=== PATIENT | male | born 1940 | race Caucasian/White ===

== ENCOUNTER 2024-03-26 08:49 | Outpatient (OUT) | payer MEDICARE, SELFPAY ==
--- NOTE | 2024-03-26 09:00 | CA_ITS ---
Patient Name: KEN BORDEN MR#: [id number] : 1940 Exam Date: 03/26/2024 Ordering Doctor: DR ARIANNE CORDOVA M.D. ECHOCARDIOGRAM REPORT PROCEDURE: CA ECHO DOPPLER COMPLETE INDICATIONS: Dyspnea on exertion, CABGx4, [place], lung cancer - chemotherapy, hypertension, diabetes COMPARISON: None. DESCRIPTION: COMPLETE ECHOCARDIOGRAM Real-time transthoracic echocardiography with 2D, M-mode, spectral and color flow Doppler performed. QUALITY: Technical quality was good. 72 , 219#, BSA 2.21 m2, BP 120/60 LEFT VENTRICLE: Normal chamber size. Proximal septal hypertrophy (sigmoid septum). Normal systolic function. LV EF: Normal left ventricular ejection fraction, (>55%). DIASTOLIC: Diastolic function is indeterminate. ATRIAL SEPTUM: Visually appears intact. LEFT ATRIUM: Moderate dilatation. RIGHT ATRIUM: Moderate dilatation. RIGHT VENTRICLE: Normal chamber size. Normal right ventricular systolic function. TRICUSPID VALVE: Normal mobility and thickness. No stenosis with trivial regurgitation. Unable to assess right-sided pressures due to lack of measurable tricuspid regurgitation. MITRAL VALVE: Normal mobility and thickness. No evidence of mitral valve stenosis. Mild mitral annular calcification. Trivial mitral regurgitation. AORTIC VALVE: Normal trileaflet appearance. Thickened aortic valve. Normal leaflet mobility. No evidence of aortic valve stenosis. No aortic regurgitation. AORTIC ROOT: Normal diameter and appearance. Ascending aorta is normal in size. PULMONIC VALVE: Not well visualized. No stenosis. No regurgitation. PERICARDIUM: No evidence of pericardial effusion. IVC: Collapses with inspirations. PLEURA: CONCLUSION: 1. Normal ventricular systolic function. LVEF is 55 to 60%. 2. Moderate biatrial dilatation. 3. No significant valvular dysfunction. 4. Unable to assess right-sided pressures due to lack of measurable tricuspid regurgitation. 5. No pericardial effusion. Adult Echocardiography Procedure Report Left Ventricle LVEDD (3.7 - 5.6 cm): 4.98 cm LVESD (2.2 - 4.0 cm): 3.64 cm LVIVS thickness (0.6 - 1.2 cm): 2.49 cm LVPW thickness (0.5 - 1.0 cm): 1.07 cm e': 0.08 m/s E - e': 6.54 LVOT Max Gradient: 2.51 mm[Hg] LVOT Area (cm2): 0.79 m/s Peak Velocity (LVOT): 0.79 m/s Mean Velocity (LVOT): 0.56 m/s LVOT Diameter 2.54 cm Left Atrium LA Volume Index (2D A2C): 27.73 ml/m2 Left Atrium Systolic Dimension: 4.02 cm Mitral Valve MV E to A Ratio: 0.57 Mitral Valve A-Wave Peak Velocity: 0.88 m/s Mitral Valve E-Wave Peak Velocity: 0.50 m/s Right Ventricle Aorta AO Root Diam: 3.65 cm Ascending Ao Diam: 2.92 cm Aortic Valve AoV Area (Peak Rafiq): 4.16 cm2, 4.16 cm2 AoV Area (VTI): 4.08 cm2, 4.08 cm2 Peak Velocity(Antegrade Flow): 0.96 m/s Peak Gradient(Antegrade Flow): 3.70 mm[Hg] Mean Velocity(Antegrade Flow): 0.64 m/s Mean Gradient(Antegrade Flow): 1.84 mm[Hg] Velocity Time Integral: 20.31 cm Tricuspid Valve Pulmonic Valve Peak Gradient: 3.90 mm[Hg], 3.10 mm[Hg] Right Atrium Right Atrium Systolic Pressure: 59.39 ml, 59.39 ml Dictated by: Ramy Marie M.D. on 03/26/2024 at 17:41 Approved by: Ramy Marie M.D. on 03/26/2024 at 17:45
== END 2024-03-26 08:50 | disposition home or self-care (01) ==
LOC: CARD 08:53
PROVIDERS: PCP Nurse Practitioner Family; Visit Provider Internal Medicine Interventional Cardiology
DX: R06.09 Other forms of dyspnea (principal); R60.9 Edema, unspecified
CPT/HCPCS: 93306

== ENCOUNTER 2025-09-22 09:44 | Outpatient (OUT) | payer MEDICARE, SELFPAY ==
--- OUTSIDE RECORDS SUMMARY | 2025-09-08 09:00 | XMS_ITS | Encounter Summary ---
Author Organization [facility] Address [address] [place] [address] Care Team Providers Care Poultry Grader Name Role Phone Richelle Patton SUPERVISOR [employer] Primary Care Provider + [phone] Reason for Referral * Imaging (Routine) - Pending ReviewSpecialtyDiagnoses / ProceduresReferred By ContactReferred To ContactCardiology Diagnoses Atherosclerosis of [place] coronary artery of [place] heart without angina pectoris Procedures Transthoracic echo (TTE) complete Ramona Espinal CNP [address] [place] [address] Phone: tel: fax: Referral IDStatusReasonStart DateExpiration DateVisits RequestedVisits [id number] Review Perform Procedure Reason for Visit * ReasonCommentsFollow-upPatient is here today for a 6 month follow up appointment with recent labs. Patient states he having chest pain, with and without activity, resolves its self. Patient complains of leg pain with walkin g resolves with rest.PVC'sCongestive Heart FailureCoronary Artery Disease HyperlipidemiaHypertensionNon-sustained ventricular tachycardiaPeripheral arterial occlusive diseaseLVHPost-op CABGChest PainWith and without activity Encounter Details DateTypeDepartmentCare Team (Latest Contact Info)Efkgmbpdyev37/30/2025 10:00 AM EDTOffice Visit [facility] [address] [place] [address] Ramona Espinal, IMAGING SYSTEM ADMINISTRATOR [address] [place] [address] Chronic diastolic heart failure (CMS/HCC) (Primary Dx); Atherosclerosis of [place] coronary artery of [place] heart without angina pectoris; Essential hypertension; Mixed hyperlipidemia; Other chest pain; PAD (peripheral artery disease) Social History Tobacco UseTypesPacks/DayYears UsedDateSmoking Tobacco: FormerCigarettes Smokeless Tobacco: NeverAlcohol UseStandard Drinks/WeekCommentsNot Currently0 (1 standard drink = 0.6 oz pure alcohol)UT Safety & EnvironmentAnswerDate Recorded Fear of Current or Ex-PartnerNot on file01/01/2024Emotionally AbusedNot on file 4Physically AbusedNot on file01/01/2024Sexually AbusedNot on file 4Physically or Sexually AbusedNot on file01/01/2024Sex and Gender InformationValueDate RecordedSex Assigned at HkqofYsbw27/27/2025 3:14 PM EDT Legal GexYhdf1805/08/2022 10:34 PM EDTGender ZpyruhauFara39/27/2025 3:14 PM EDT Sexual OrientationHeterosexual or Imtgylli98/27/2025 3:14 PM EDTdocumented as of this encounter Last Filed Vital Signs Vital SignReadingTime TakenCommentsBlood Laruqoxv409/6509/08/2025 9:53 AM EDT Kshcb257609/08/2025 9:53 AM EDTTemperature--Respiratory Rate--Oxygen Elkcqwrydf39% 09/08/2025 9:53 AM EDTInhaled Oxygen Concentration--Bwrggo85.8 kg (209 lb) 09/08/2025 9:53 AM WMWYxspzi890.9 cm (6')09/08/2025 9:53 AM EDTBody Mass Index 28.351 9:53 AM EDTdocumented in this encounter Functional Status * BPAnswerDate of AprvbnzbcyDfhqza268/ 9:53 AM LYNNTCNatali virk MA * PulseAnswerDate of PneqchwxsmTvkwvy6017/30/2025 9:53 AM Natali aSlvador MA * Patient PositionAnswerDate of WbfqborhugIqqptyAysifjm81/30/2025 9:53 AM EDT Natali Bravo MA * BPAnswerDate of IxfmkwyufrZiwmzo575/6509/08/2025 9:53 AM Natali Salvador MA * PulseAnswerDate of GpqomzmfbtQriaae3203/30/2025 9:53 AM Natali Salvador MA * BdS4HlutquZhga of LnstorbgzqNenvrv7036/30/2025 9:53 AM Natali Salvador MA * BP LocationAnswerDate of AssessmentAuthorLeft arm09/08/2025 9:53 AM EDT Natali Bravo MA * Patient PositionAnswerDate of KkzkkbzmyrHywucxPmgudxp98/30/2025 9:53 AM EDT Natali Bravo MA documented as of this encounter Progress Notes * Ramona Espinal, IMAGING SYSTEM ADMINISTRATOR - 09/08/2025 10:00 AM EDT Images from the original note were not included. Cardiovascular Medicine [facility] SUBJECTIVE Chief Complaint Patient presents with Follow-up Patient is here today for a 6 month follow up appointment with recent labs. Patient states he having chest pain, with and without activity, resolves its self. Patient complains of leg pain with walking resolves with rest. PVC's Congestive Heart Failure Coronary Artery Disease Hyperlipidemia Hypertension Non-sustained ventricular tachycardia Peripheral arterial occlusive disease LVH Post-op CABG Chest Pain With and without activity Leopoldo Aguilar . is a 85 y.o. male here for follow-up. PMHx: HFpEF, CAD (hx CABG X4 2008, C 09/14/2020), HTN, and HLD. Additional Hx: Lung CA s/p chemo HPI 09/08/2025 He has been having c/o chest pain for the past month or so. He notices pain with rest. More often he notices in the evening. Occurs left sided and radiates to his left shoulder. Pain is sharp. Lasts for maybe a minute then resolves on its own. No accompanied sx's. His breathing has been stable. He notes ongoing issues with leg pain with walking longer distances - this improves with rest. He has been following with Dr. Caldwell for his PAD. Denies orthopnea, PND, palpitations, syncope. Problem List[1] Medical History[2] Family History[3] Social History[4] Allergies[5] OBJECTIVE Visit Vitals BP 113/65 (BP Location: Left arm, Patient Position: Sitting) Pulse 70 Ht 1.829 m (6') Wt 94.8 kg (209 lb) SpO2 95% BMI 28.35 kg/m?? Smoking Status Former BSA 2.19 m?? Medications: Current Medications[6] Physical Exam Constitutional: Appearance: Normal appearance. He is normal weight. HENT: Head: Normocephalic and atraumatic. Right Ear: External ear normal. Left Ear: External ear normal. Eyes: Extraocular Movements: Extraocular movements intact. Pupils: Pupils are equal, round, and reactive to light. Neck: Vascular: No carotid bruit. Cardiovascular: Rate and Rhythm: Normal rate and regular rhythm. Pulses: Normal pulses. Heart sounds: Normal heart sounds. Pulmonary: Effort: Pulmonary effort is normal. Breath sounds: Normal breath sounds. Abdominal: General: Bowel sounds are normal. Palpations: Abdomen is soft. Musculoskeletal: General: Normal range of motion. Cervical back: Neck supple. Right lower leg: Edema present. Left lower leg: Edema present. Comments: +1 BLE edema with compression stockings in place Skin: General: Skin is warm and dry. Neurological: General: No focal deficit present. Mental Status: He is alert and oriented to person, place, and time. Psychiatric: Mood and Affect: Mood normal. Behavior: Behavior normal. Thought Content: Thought content normal. Judgment: Judgment normal. Labs: No results found for: EXTCMP , BMPR1A , CBCDIF , BNP , LASAP , RED No visits with results within 6 Month(s) from this visit. Latest known visit with results is: [facility] Encounter on 09/14/2020 Component Date Value Auto WBC 09/14/2020 7.87 RBC 09/14/2020 5.46 Hemoglobin 09/14/2020 14.5 Hematocrit 09/14/2020 45.4 MCV 09/14/2020 83.2 MCH 09/14/2020 26.6 (L) MCHC 09/14/2020 31.9 (L) RDW 09/14/2020 14.2 Platelets 09/14/2020 161 nRBC % 09/14/2020 0 09/08/2025 Cr 1.4, BUN 26, K 4.4, Na 143 Hgb 14 Mag 2.4 02/25/2025 Chol 115, trig 86, HDL 35, direct LDL 70, VLDL 17 Labs reviewed 01/18/2025: Glucose 106, BUN 27, creatinine 1.3, sodium 140, potassium 3.8, calcium 9.3, albumin 4.2, phosphorus 3.8, magnesium 2.3 Labs reviewed 09/14/2024: Potassium 3.9, sodium 145, calcium 9.1, creatinine 1.4, BUN 26, EGFR 50, glucose 211 09/07/2024: Hemoglobin A1c 6.5% Testing/Procedures: Coronary angiogram 09/14/2020: TTE 03/26/2024: Conclusion: 1. Normal ventricular ventricular systolic function. LVEF is 55 to 60% 2. Moderate by atrial dilation. 3. No significant valvular dysfunction. 4. Unable to assess right-sided pressures due to lack of measurable tricuspid regurgitation. 5. No pericardial fusion TTE 07/24/2022: Ventricular systolic function is normal. EF is 60%. grade 1 diastolic dysfunction. No significant valvular dysfunction. No pericardial effusion. ASSESSMENT/PLAN: Diagnoses and all orders for this visit: Chronic diastolic heart failure (CMS/HCC) Atherosclerosis of [place] coronary artery of [place] heart without angina pectoris - Transthoracic echo (TTE) complete; Future - Lexiscan Stress Myocardial Perfusion Imaging; Future Essential hypertension Mixed hyperlipidemia Other chest pain - Lexiscan Stress Myocardial Perfusion Imaging; Future PAD (peripheral artery disease) #CORONARY ARTERY DISEASE -Hx CABG X4 2008 -[facility] 09/14/2020 (indication exertional shortness of breath, abnormal stress test): Severe three-vessel [place] CAD, 4/4 bypass grafts patent LVEF: 55-60% (from last TTE on 03/26/2024) Patient has developed some anginal symptoms within the past month. Will proceed with a lexiscan stress test to assess for ischemia. He notes he doesn't think he could walk on the treadmill due to back and leg pain therefore lexiscan stress test was ordered. EKG today shows SR, PVCs, bifascicular block Denies usage of nitroglycerin tablets Continue statin, plavix, metoprolol #HEART FAILURE, diastolic, chronic LE edema +1, currently wearing compression stockings Continue lasix, jardiance #HYPERLIPIDEMIA Latest lipid panel reviewed 02/25/2025: Chol 115, trig 86, HDL 35, direct LDL 70, VLDL 17 Well controlled Continue atorvastatin 20mg daily #HTN Controlled Continue amlodipine, metoprolol, lisinopril #PAD -On pletal, plavix, statin -Continue follow up with vascular If testing unremarkable, Follow up in about 6 months (around 03/09/2026). Ramona Espinal CNP [facility] [1] Patient Active Problem List Diagnosis PVC (premature ventricular contraction) Nonsustained ventricular tachycardia ([facility]/HCC) Dyspnea Chronic diastolic heart failure (CMS/HCC) Coronary atherosclerosis Migraine Psoriasis JULIEN (obstructive sleep apnea) Diabetes mellitus type II, non insulin dependent ([facility]/HCC) Mixed hyperlipidemia Essential hypertension Abnormal CT scan, lung Acid reflux Anemia Asymptomatic microscopic hematuria Benign hypertensive renal disease Benign prostatic hyperplasia BPH with urinary obstruction 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 Cerumen impaction Chronic obstructive lung disease (CMS/HCC) Claudication COPD type B ([facility]/HCC) Community acquired bacterial pneumonia Edema of leg Elevated prostate specific antigen (PSA) Feeling of incomplete bladder emptying Hypertensive heart disease Leaking of urine Lung nodules Mild carpal tunnel syndrome of right wrist Nocturia Non-smoker MCFP (current) use of insulin ([facility]/HCC) Obesity, unspecified Peripheral arterial occlusive disease Patient had no falls in past year Other specified problems related to psychosocial circumstances Phimosis 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 (CMS/HCC) Pure hypercholesterolemia Solitary pulmonary nodule Stage 3 chronic kidney disease (CMS/HCC) Type 2 diabetes mellitus with diabetic peripheral angiopathy without gangrene ([facility]/HCC) Typical angina Vitamin D deficiency Venous stasis ulcer of lower extremity (CMS/HCC) Urethral meatal stenosis Uncontrolled type 2 diabetes mellitus Atherosclerosis of [place] arteries of extremities with intermittent claudication, bilateral legs History of intravascular stent placement Impacted cerumen of both ears Type 2 diabetes mellitus with diabetic neuropathy, with long-term current use of insulin ([facility]) Encounter for other preprocedural examination Left ventricular hypertrophy Primary malignant neoplasm of right lower lobe of lung (CMS/HCC) Type 2 diabetes mellitus with mild nonproliferative diabetic retinopathy without macular edema, right eye (CMS/[facility]) Cataract Exercise intolerance Fatigue [2] Past Medical History: Diagnosis Date Cancer ([facility]) CHF (congestive heart failure) ([facility]/HCC) Coronary artery disease Diabetes mellitus ([facility]) Hyperlipidemia PVD (peripheral vascular disease) [3] Family History Problem Relation Name Age of Onset No Known Problems Mother Heart attack Father Diabetes Sister [4] Social History Tobacco Use Smoking status: Former Types: Cigarettes Smokeless tobacco: Never Substance Use Topics Alcohol use: Not Currently Drug use: Never [5] Allergies Allergen Reactions Aspirin Hives Penicillins Other [6] Current Outpatient Medications: albuterol 2.5 mg /3 mL (0.083 %) nebulizer solution, INHALE contents of 1 vial using nebulizer FOURTIMES DAILY & EVERY 2 HOURS NEEDED, Disp: , Rfl: amLODIPine (Norvasc) 5 mg tablet, Take 1 tablet (5 mg) by mouth in the morning., Disp: 30 tablet, Rfl: 5 ascorbic acid (Vitamin C) 500 mg tablet, Take 500 mg by mouth in the morning., Disp: , Rfl: atorvastatin (Lipitor) 20 mg tablet, Take 1 tablet by mouth at bedtime., Disp: , Rfl: sfewcohkxi-ndnhtljx-pxpxzpodch 160-9-4.8 mcg/actuation HFA aerosol inhaler, Inhale 160 mcg Twice daily at 6am and 6pm., Disp: , Rfl: cholecalciferol (Vitamin D-3) 25 MCG (1000 UT) capsule, Take 2 capsules every day by oral route., Disp: , Rfl: cilostazol (Pletal) 100 mg tablet, Take 1 tablet by mouth in the morning and at bedtime., Disp: , Rfl: clopidogrel (Plavix) 75 mg tablet, Take 1 tablet by mouth in the morning., Disp: , Rfl: dulaglutide (Trulicity) 1.5 mg/0.5 mL pen injector, Inject 1.5 mg under the skin 1 (one) time per week., Disp: , Rfl: empagliflozin (Jardiance) 10 mg, Take 1 tablet by mouth in the morning., Disp: , Rfl: finasteride (Proscar) 5 mg tablet, Take 1 tablet by mouth in the morning., Disp: , Rfl: fluticasone furoate-vilanteroL (Breo Elipta) 200-25 mcg/dose inhaler, INHALE 1 (ONE) PUFF DAILY, Disp: , Rfl: furosemide (Lasix) 20 mg tablet, Take 1 tablet (20 mg) by mouth in the morning and at bedtime., Disp: 180 tablet, Rfl: 3 glucose 4 gram chewable tablet, Chew 16 g., Disp: , Rfl: insulin glargine (Lantus) 100 unit/mL (3 mL) pen, inject 40 units SUBCUTANEOUSLY daily, Disp: , Rfl: lisinopril 20 mg tablet, Take 1 tablet by mouth in the morning., Disp: , Rfl: magnesium citrate and oxide (magnesium citrate,mag oxide) 250 mg capsule, Take 250 mg by mouth 2 times daily., Disp: , Rfl: metFORMIN XR (Glucophage-XR) 500 mg 24 hr tablet, Take 500 mg by mouth daily with evening meal., Disp: , Rfl: metoprolol tartrate (Lopressor) 25 mg tablet, TAKE 1 & 1/2 (ONE AND ONE-HALF) TABLETS BY MOUTH TWICE DAILY, Disp: , Rfl: nitroglycerin (Nitrostat) 0.4 mg SL tablet, DISSOLVE 1 TABLET UNDER THE TONGUE NEEDED FOR CHEST PAIN- MAY REPEAT EVERY 5 MINUTES IF NEEDED ( MAX 3 DOSES.- IF NO RELIEF CALL 911), Disp: , Rfl: omega-3 fatty acids-fish oil (Fish Oil) 300-1,000 mg capsule, Take 1 capsule by mouth twice a day.,Disp: , Rfl: semaglutide 1 mg/dose (4 mg/3 mL) pen injector, Inject 1 mg under the skin in the morning., Disp: ,Rfl: insulin lispro (HumaLOG) 100 unit/mL injection, inject 13 units subcutaneously THREE TIMES DAILY BEFORE MEALS (Patient not taking: Reported on 09/08/2025), Disp: , Rfl: documented in this encounter Plan of Treatment NameTypePriorityAssociated DiagnosesOrder ScheduleTransthoracic echo (TTE) completeEchocardiographyRoutine Atherosclerosis of [place] coronary artery of [place] heart without angina pectoris Expected: 09/08/2025 (Approximate), Expires: 09/08/2027Lexiscan Stress Myocardial Perfusion ImagingCardiac ServicesRoutine Atherosclerosis of [place] coronary artery of [place] heart without angina pectoris Other chest pain Expected: 09/08/2025 (Approximate), Expires: 09/08/2027documented as of this encounter Visit Diagnoses Diagnosis Chronic diastolic heart failure (CMS/HCC)- Primary Chronic diastolic heart failure Atherosclerosis of [place] coronary artery of [place] heart without angina pectoris Essential hypertension Unspecified essential hypertension Mixed hyperlipidemia Other chest pain PAD (peripheral artery disease) Unspecified peripheral vascular disease documented in this encounter Care Teams Team MemberRelationshipSpecialtyStart DateEnd Date Richelle Patton FNP [address] [place], [place] [address] [address] PCP - GeneralNurse Xdqaoveloyfn27/16/23documented as of this encounter
--- NOTE | 2025-09-22 09:45 | NM_ITS ---
Patient Name: KEN BORDEN MR#: [id number] : 1940 Exam Date: 09/22/2025 Ordering Doctor: ALBERTINA AVILES CNP RADIOLOGY REPORT PROCEDURE: NM MARIBELL PERF SPECT REST STR COMPARISON: None. INDICATIONS: CHEST PAIN, CORONARY ARTERY DISEASE TECHNIQUE: Exam Description: Stress/Rest one day protocol gated SPECT Rest Imagin.8 mCi Tc-99m Cardiolite IV on 09/22/2025 Stress Imaging 30.2 mCi Tc-99m Cardiolite IV on 09/22/2025 Exercise Protocol: 0.4 mg Lexiscan given IV Heart Rate (bpm): Rest: 75 Max: 103 PMHR: 75 Blood Pressure: Rest: 114/46 Max: 136/60 Symptoms: Rest and peak stress ECG findings were pending and the EKG portion of the study was pending per attending physician [facility] [[email or web address]] . For more details please see separate cardiac stress test report. FINDINGS: QUALITY OF STUDY: Good PERFUSION DEFECT: LOCATION: Mid and basal inferolateral as well as basal inferior segments SIZE: Medium SEVERITY: Severe TYPE: Fixed WALL MOTION: The upper segments appear hypokinetic LV SIZE: 120 mL. TID / TCD: 1.0 LVEF: Calculated EF 49%. SUMMARY: Abnormal myocardial perfusion imaging study CONCLUSION: Abnormal myocardial perfusion stress images revealing evidence of scar/infarct involving mid and basal inferolateral segments and basal inferior segment. No evidence of ischemia Slightly reduced left ventricle systolic function, ejection fraction 49% No transient ischemic dilatation, TID 1.0 EKG portion of stress test is reported separately Dictated by: Marcelo Gonzalez MD on 09/26/2025 at 17:19 Approved by: Marcelo Gonzalez MD on 09/26/2025 at 17:24
--- OUTSIDE RECORDS SUMMARY | 2025-09-22 09:48 | XMS_ITS | Clinical Summary ---
Author Organization [facility] Address [address] [place] [address] Care Team Providers Care Band Shover Name Role Phone Liz Tellez CNP Primary Care Provider aJvi CROW DO, W. Don Unavailable [phone] Allergies Active AllergyReactionsCriticalityNoted PsqaOwfkakdzZqxmzbv70/28/2020Penicillins 09/06/2020 Medications MedicationSigDispense QuantityRefillsLast FilledStart DateEnd DateStatus amLODIPine (NORVASC) 2.5 MG tablet Take 1 (one) tablet (2.5 mg total) by mouth daily .Active atorvastatin (LIPITOR) 20 MG tablet Take 1 (one) tablet (20 mg total) by mouth daily .Active clopidogreL (PLAVIX) 75 mg tablet Take 1 (one) tablet (75 mg total) by mouth daily .Active finasteride (PROSCAR) 5 mg tablet Take 1 (one) tablet (5 mg total) by mouth daily .Active furosemide (LASIX) 20 MG tablet Take 1 (one) tablet (20 mg total) by mouth daily .Active insulin glargine (Lantus Solostar U-100 Insulin) 100 unit/mL (3 mL) InPn Inject 10 (ten) Units under the skin nightly .Active lisinopriL (PRINIVIL,ZESTRIL) 20 MG tablet Take 1 (one) tablet (20 mg total) by mouth daily .Active magnesium 250 mg Tab Take 1 (one) tablet (250 mg total) by mouth 2 (two) times a day .Active metoprolol tartrate 37.5 mg Tab Take 1 (one) tablet (37.5 mg total) by mouth 2 (two) times a day .Active nitroGLYCERIN (NITROSTAT) 0.[address] 1 (one) tablet (0.4 mg total) under the tongue every 5 (five) minutes as needed for chest pain , if no relief after 3 doses call 911 .Active ascorbic acid, vitamin C, (VITAMIN C) 500 MG tablet Take 1 (one) tablet (500 mg total) by mouth daily .Active cholecalciferol, vitamin D3, 25 mcg (1,000 unit) capsule Take 1 (one) capsule (1,000 Units total) by mouth daily .Active albuterol (PROVENTIL) 2.5 mg /3 mL (0.083 %) nebulizer solution Take 3 mL (2.5 mg total) by nebulization once daily .Active cilostazoL (PLETAL) 100 MG tablet Indications:Atherosclerosis of [place] arteries of extremities with intermittent claudication, bilateral legs ([facility]),PAD (peripheral artery disease) ([facility])Take 1 (one) tablet (100 mg total) by mouth 2 (two) times a day Take on an empty stomach . 60 tablet 4Active zvwpuqvdsv-zoerveij-mtqwklsoal (Breztri Aerosphere) 160-9-4.8 mcg/actuation HFAA Inhale 2 (two) puffs 2 (two) times a day .Active empagliflozin (Jardiance) 25 mg Tab Take 0.5 (one-half) tablet (12.5 mg total) by mouth daily Per [facility], 1/2 tab daily .Active semaglutide (Ozempic) 1 mg/dose (4 mg/3 mL) Pen Indications:Type 2 diabetes mellitus with diabetic nephropathy, with long-term current use of insulin ([facility])Inject 0.75 mL (1 mg total) under the skin every 7 days . 9 mL 4Active metFORMIN (GLUCOPHAGE-XR) 500 MG 24 hr tablet One tablet twice daily with food . 60 tablet 5Active omega-3 fatty acids/fish oil (fish oil-omega-3 fatty acids) 300-1,000 mg capsule Take 1 (one) capsule by mouth 2 (two) times a day .Active tiotropium (SPIRIVA) [address] 1 (one) capsule (18 mcg total) into inhaler and inhale daily .Active blood sugar diagnostic (glucose blood) strips Indications:Type 2 diabetes mellitus with chronic kidney disease, with long-term current use of insulin, unspecified CKD stage (HCC)Check BG pre meals and bedtime, E11.65 . 400 strip 5Active lancets Misc Indications:Type 2 diabetes mellitus with chronic kidney disease, with long-term current use of insulin, unspecified CKD stage (HCC)Check BG pre meals and bedtime . 400 each 5Active blood-glucose meter kit Indications:Type 2 diabetes mellitus with chronic kidney disease, with long-term current use of insulin, unspecified CKD stage (HCC)Use as instructed, e11.65, acck guide me . 1 each 6Active Active Problems ProblemNoted DateDiagnosed DateHistory of intravascular stent placement 04/08/2024Type 2 diabetes mellitus with diabetic neuropathy, with long-term current use of oloiofb7604/08/2024AD (peripheral artery disease)04/08/2024 Atherosclerosis of [place] arteries of extremities with intermittent claudication, bilateral legs04/08/2024Lung mgtefrz0412/20/2022 Overview (12/20/2022): Added automatically from request for surgery [id number] Family History Medical HistoryRelationCommentsRheumatic feverFatherRelationStatusCommentsFather Social History Tobacco UseTypesPacks/DayYears UsedDateSmoking Tobacco: AuhvmaNrmotrvexu425 08/31/1959 - 08/31/2009Passive Smoke Exposure: NeverSmokeless Tobacco: Never Tobacco Cessation:Counseling Given: Not Answered Comments:Quit 2008 Alcohol UseStandard Drinks/WeekCommentsNot Currently0 (1 standard drink = 0.6 oz pure alcohol)not any more but use to be badSex and Gender InformationValueDate RecordedSex Assigned at BirthNot on fileLegal IctYsqk04/20/2020 1:46 PM EDT Gender DeegbyvtMjhf99/21/2022 8:33 AM EDTSexual UdyxnucortmFdipbwtm68/21/2022 8:33 AM EDT Last Filed Vital Signs Vital SignReadingTime TakenCommentsBlood Cgpngpjj336/5405 1:03 PM EDT Rzmck2277 1:03 PM ISBXaxnpesxiix02.8 ??C (98.2 ??F)07/23/2023 10:28 AM EDTRespiratory Njtp111004/21/2023 11:27 AM EDTOxygen Udscnglxuk60%07/23/2023 10:34 AM EDTat rest on room airInhaled Oxygen Concentration--Nxqoos52.2 kg (212 lb) 03/21/2025 1:03 PM RSWEotmcn269.9 cm (6')09/30/2024 1:43 PM ESTBody Mass Index 28.7509/30/2024 1:43 PM EST Plan of Treatment Health MaintenanceDue DateLast DoneCommentsMedicare Wellness Visit1944 Diabetic Eye Exam1951epression Screening/Follow-Up (PHQ-2/9)1953 Zoster Vaccines (1 of 2)1991Falls Risk Khrsqzrjgm38/25/2006RSV Vaccines (1 - 1-dose 75+ series)2016Urine (micro)albumin/creatinine ratio - Diabetes /05/2023, 06/26/2022eGFR ??? Bduoeyio11/03/2024, 09/16/2023, 01/13/2023, Additional history existsCOVID-19 Vaccine ( - 2024- season)2025Influenza Vaccine (#1)/, 09/10/2016Diabetic Foot Exam/8559X6K42/10/2025, 09/07/2024, 01/30/2024, Additional history existsTetanus/Diphtheria/Pertussis (2 - Td or Tdap)03/02/2027 03/02/2017Pneumococcal Vaccine: 50+ OfekcJvwpenugi08/03/2016, 10/19/2009HIB VaccinesAged OutNo longer eligible based on patient's age to complete this topic HPV VaccinesAged OutNo longer eligible based on patient's age to complete this topicHepatitis A VaccinesAged OutNo longer eligible based on patient's age to complete this topicHepatitis B VaccinesAged OutNo longer eligible based on patient's age to complete this topicIPV VaccinesAged OutNo longer eligible based on patient's age to complete this topicMeningococcal ACWY VaccineAged OutNo longer eligible based on patient's age to complete this topicMeningococcal B VaccineAged OutNo longer eligible based on patient's age to complete this topic Rotavirus VaccinesAged OutNo longer eligible based on patient's age to complete this topic Procedures Procedure NamePriorityDate/TimeAssociated DiagnosisCommentsPOC HEMOGLOBIN A1C Fxawsnu2703/21/2025 1:32 PM EDT Type 2 diabetes mellitus with chronic kidney disease, with long-term current use of insulin, unspecified CKD stage (HCC) BASIC METABOLIC IAMHBKxidhpq04/05/2024 9:59 AM EST Atherosclerosis of [place] arteries of extremities with intermittent claudication, bilateral legs (HCC) Type 2 diabetes mellitus with diabetic neuropathy, with long-term current use of insulin (HCC) MICROALBUMIN, URINE, OPZJJBAjodvqp86/07/2023 11:36 AM EST Type 2 diabetes mellitus with chronic kidney disease, with long-term current use of insulin, unspecified CKD stage (HCC) from Last 3 Months or Most Recently Relevant to Health Maintenance Results * (ABNORMAL) POC Hemoglobin A1C (03/21/2025 1:32 PM EDT)ComponentValueRef Range Test MethodAnalysis TimePerformed AtPathologist SignatureHemoglobin A1C6.2(A) 4.0 - 6.0 %Specimen (Source)Anatomical Location / LateralityCollection Method / VolumeCollection TimeReceived LckpDfeju40/12/2025 1:32 PM EDT Narrative Authorizing ProviderResult TypeResult StatusSaraterrance Luna [facility] TEST ORDERABLESFinal Result * (ABNORMAL) Basic metabolic panel (09/14/2024 9:59 AM EST)ComponentValueRef RangeTest MethodAnalysis TimePerformed AtPathologist CafxlpsimLfddhey899(H)65 - 139 mg/dLQUEST TRINITY HEALTHComment: ? Non-fasting reference interval For someone without known diabetes, a glucose value >125 mg/dL indicates that they may have diabetes and this should be confirmed with a follow-up test. BUN26(H)7 - 25 mg/dLQUEST DIAGNOSTICS KIN[facility]ED HEALTHCARECreatinine1.40 (H)0.70 - 1.22 mg/dLQUEST DIAGNOSTICS OF LATROBE HOSPITALeGFR50(L)> OR = 60 mL/min/1.71z1PJCBP DIAGNOSTICS OF LATRO[facility] HOSPITALBun/Creatinine Ratio ([facility])196 - 22 (calc)[facility] HOSPITALSodium145135 - 146 mmol/LQUEST DIAGNOSTICS OF [facility] HOSPITALPotassium3.93.5 - 5.3 mmol/LQUEST DIAGNOSTICS OF LATROBE HOSPITALChloride10598 - 110 mmol/L [facility]ALTHCARECO23120 - 32 mmol/LQUEST DIAGNOSTICS OF [facility]RO[facility] HOSPITALCalcium9.18.6 - 10.3 mg/dLQUEST DIAGNOSTICS OF LATROBE HOSPITALSpecimen (Source)Anatomical Location / Laterality Collection Method / VolumeCollection TimeReceived TimeBloodBLOOD SPECIMEN / Vgzfivs2109/14/2024 9:59 AM EST09/14/2024 10:00 AM EST Narrative [facility] - 09/14/2024 10:25 PM EST FASTING:NO FASTING: NO Authorizing ProviderResult TypeResult StatusW. Nixon Caldwell III, DOLAB BLOOD ORDERABLESFinal ResultPerforming OrganizationAddressCity/State/ZIP CodePhone Number [facility] [address] [place] [address], * (ABNORMAL) Microalbumin/Creatinine Ratio, UR Random (09/16/2023 11:36 AM EST) ComponentValueRef RangeTest MethodAnalysis TimePerformed AtPathologist SignatureMicroalb, Ur5.9(H)0.0 - 1.8 mg/dL09/16/2023 2:00 PM [facility] Microalbumin/Creat Ratio66(H)0 - 25 mg/g crea111/16/2022 2:00 PM [facility] Creatinine, Ur, Hvwlfs77.1mg/dL09/16/2023 2:00 PM [facility] LABSpecimen (Source) Anatomical Location / LateralityCollection Method / VolumeCollection Time Received TimeUrineURINE SPECIMEN / UnknownCollection / Iwpogte2209/16/2023 11:36 AM EST09/16/2023 11:36 AM EST Narrative Authorizing ProviderResult TypeResult StatusHussein Holden ZUÑIGA ORDERABLESFinal ResultPerforming OrganizationAddressCity/State/ZIP CodePhone Number LAB [address] [place] [address] from Last 3 Months or Most Recently Relevant to Health Maintenance Insurance Care Teams Team MemberRelationshipSpecialtyStart DateEnd Liz Tellez CNP [address] [place] [address] PCP - GeneralFamily Vffpvlal09/7/22 Rey Caldwell III, DO [address] [place] [address] Consulting PhysicianVascular Surgery04/08/24
--- OUTSIDE RECORDS SUMMARY | 2025-09-22 09:48 | XMS_ITS | Clinical Summary ---
Author Organization [id number] [address] [place] [address] Care Team Providers Care Battalion Fire Chief Name Role Phone Helen Jimenez APRN-GAMBLING MONITOR Primary Care Provider Unavailable Allergies Active AllergyReactionsCriticalityNoted RlkbRoxwjixhYyhntrzZxxvu81/12/2022 Opyfgruvtzs08/12/2022 Medications MedicationSigDispense QuantityRefillsLast FilledStart DateEnd DateStatus albuterol (PROVENTIL,VENTOLIN) 2.5 mg /3 mL (0.083 %) nebulizer solution Inhale 2.5 mg by nebulization every 6 (six) hours as needed for wheezing.Active amLODIPine (NORVASC) 2.5 mg tablet Take 2.5 mg by mouth in the morning. At bedtime .Active atorvastatin (LIPITOR) 20 mg tablet Take 20 mg by mouth in the morning. At bedtime .Active fluticasone furoate-vilanteroL (BREO ELLIPTA) 200-25 mcg/dose blister with device Inhale 1 puff daily.Active clopidogreL (PLAVIX) 75 mg tablet Take 75 mg by mouth daily.Active finasteride (PROSCAR) 5 mg tablet Take 5 mg by mouth daily.Active furosemide (LASIX) 20 mg tablet Take 20 mg by mouth 2 (two) times a day.Active glipiZIDE (GLUCOTROL) 10 mg tablet Take 10 mg by mouth 2 (two) times a day before meals.Active insulin lispro protamin-lispro (HumaLOG Mix 50-50 KwikPen) 100 unit/mL (50-50) insulin pen Inject under the skin 2 (two) times a day before meals. Inject 13 units subcutaneously 3 times a day before mealsActive insulin glargine (LANTUS, BASAGLAR) 100 unit/mL (3 mL) insulin pen Inject under the skin nightly. 40 units dailyActive lisinopriL (PRINIVIL,ZESTRIL) 20 mg tablet Take 20 mg by mouth daily.Active magnesium 250 mg tablet Take 250 mg by mouth 2 (two) times a day.Active metoprolol tartrate (LOPRESSOR) 25 mg tablet Take 25 mg by mouth in the morning and 25 mg before bedtime. 1 & 1/2 - 2 times a day .Active nitroglycerin (NITRODUR) 0.4 mg/hr Place 1 patch on the skin daily. Dissolve 1 tablet under the tongue as needed for painActive sAXagliptin (ONGLYZA) 5 mg tablet Take 5 mg by mouth daily.Active tiotropium (SPIRIVA) 18 mcg per inhalation capsule Place 1 capsule into inhaler and inhale once daily.Active cholecalciferol (VITAMIN D3) 1,000 units tablet Take 1,000 Units by mouth daily.Active Active Problems ProblemNoted DateDiagnosed DateChronic diastolic heart dlqwtav5810/17/2021Type 2 diabetes mellitus with diabetic peripheral angiopathy without zevhcfsv27/14/2012 Qyxvjspfspsc47/14/9718Omhjzgrp53/09/2064Nilkzogzm32/09/2012Sleep apnea05/18/2012 Coronary poozhcrwvfibbqcu09/01/2009 Resolved Problems ProblemNoted DateDiagnosed DateResolved DateSevere obesity (BMI 35.0-39.9) with kvcztvfbrcc78AD (peripheral artery disease)10/23/2012 07/21/2022 Overview (11/21/2021): RECREATION ATTENDANT/Stent,EVETTE RSFA 2010 Social History Tobacco UseTypesPacks/DayYears UsedDateSmoking Tobacco: FormerCigarettesQuit: 07/30/2018Smokeless Tobacco: NeverAlcohol UseStandard Drinks/WeekCommentsNot Currently0 (1 standard drink = 0.6 oz pure alcohol)ChildcareAnswerDate Recorded MbfokgdrwEluwpgk03/12/2019EmploymentAnswerDate RecordedEmploymentUnknown 04/21/2019Sex and Gender InformationValueDate RecordedSex Assigned at BirthNot on fileLegal SflYfyy1206/14/2015 4:58 PM EDTGender IdentityNot on fileSexual OrientationNot on file Last Filed Vital Signs Vital SignReadingTime TakenCommentsBlood Geaqzxyi933/4908/23/2022 2:14 PM EDT Xzaji923403/21/2022 9:04 AM PJJKdsqgstyxzx01.3 ??C (97.3 ??F)12/06/2021 9:40 AM ESTRespiratory Nvhj361803/21/2022 9:04 AM EDTOxygen Wdkqbswnsq82%12/20/2021 11:34 AM ESTInhaled Oxygen Concentration--Kpspcr802.2 kg (254 lb)08/23/2022 2:14 PM XDXOilhfy031.3 cm (5' 10.98 )08/23/2022 2:14 PM EDTBody Mass Index35.44 08/23/2022 2:14 PM EDT Plan of Treatment Health MaintenanceDue DateLast DoneCommentsDepression Onbxucmgl99/25/1953Tobacco Rakfqdssc65/25/1953Zoster (Shingles) Vaccine (1 of 2)1991Fall Risk Taiwutzff52/25/2006RSV ( or age 60+ yrs) (1 - 1-dose 75+ series) 2016Influenza Lgyglss1807/11/2025DTaP,Tdap and Td Vaccines (2 - Td or Tdap) Medical Devices Not on file Insurance Care Teams Team MemberRelationshipSpecialtyStart DateEnd Date Helen Jimenez APRN-GAMBLING MONITOR PCP - GeneralNurse Cptoleqnmdci25/20/21
--- OUTSIDE RECORDS SUMMARY | 2025-09-22 09:48 | XMS_ITS | Continuity of Care Document ---
Author Organization [facility] Address [address] [place] [phone] Phone [phone] Care Team Providers Care Community Service Worker Name Role Phone Liz Tellez CNP Care Team Information Rece iver [phone] Problems Active Problems Provider Date Type 2 diabetes mellitus David Malin M.D. Ons et: 02/19/2012 Benign hypertensive renal disease David Malin M.D. Onset: 02/19/2012 Chronic kidney disease stage 3 Idalmis Dasilva Onset: 02/19/2012 Pure hypercholesterolemia David Malin M.D. On set: 02/19/2012 Obesity David Malin M.D. Onset: 02/18 Type 2 diabetes mellitus David Malin M.D. Ons et: 09/29/2014 Uncontrolled type 2 diabetes mellitus Clay isaac MD Onset: 10/19/2015 Family History Date Family Member(s) Observation Comments Father Heart Disease AGE 6 9 Father Diabetes Mother Congestive Heart Failure DEC EASED AGE 72 Mother Diabetes First Sister Diabetes STILL LIVING AG E 72 Social History Type Date Description Comments Sex Male ETOH Use Has consumed alc ohol in the past Tobacco Use Start: Unknown End: Unknown Patient is a former smoker Quit smoking manish 2008 Recreational Drug Use Denies Drug Use Smoking Status Reviewed: 02/07/25 Patient is a former smoker Quit smoking destinyud 2008 Results Test Acquired Date Facility Test Result H/L [place] .Magnesium 08/16/2025 [facility] [phone].Magnesium2.4.Hemoglobin And Qswphajjcb59/07/2025[facility] [phone].Hemoglobin Blood14.0.Scneksnkdy84.0.Vitamin D, 25 Hydroxy 08/16/2025[facility] [phone].Vitamin D, 25 Xzcywpy538.5.Renal Panel-lab jos/quest08/16/2025 [facility] [phone].Calcium9.4.Carbon Dqtvvri10.Xleuyirw453.Phosphorus4.0 .Potassium4.4.Asrckw237.BUN26.GFR Kjnwpnykk95.Creatinine-LC1.4Urine Protein+Creatinine W/Rat08/16/2025[facility] [phone] Protein Random W/O Creat21.6Urine Creatine QN Dslokh68.7 .Hemoglobin And Jpyvwmvbyu66/12/2025[facility] [address] [place] [address] [phone].Hemoglobin Blood14.0.Mrxpdlkngh03.3.Ecxuovcyg86/12/2025[facility] [address] [place] [address] [phone].Magnesium2.3.Renal Panel-lab jos/quest01/19/2025[facility] [address] [place] [address] [phone].Albumin4.2.Calcium9.3.Carbon Ykoozja79.Aqbkarop076.Phosphorus3.8 .Potassium3.8.Vszqqd223.BUN27.GFR Gzioavblk78Qggo88.Creatinine-LC1.3Urine Protein+Creatinine W/Rat01/19/2025[facility] [address] [place] [address] [phone] Protein Random W/O Creat16.9Urine Creatine QN Leousp89.7 .Ipth01/19/2025[facility] [address] [place] [address] [phone].Ipth22.Vitamin D, 25 Stpfshu0301/19/2025[facility] [address] [place] [address] [phone].Vitamin D, 25 Tqgbcex087.9.Renal Panel08/03/2024[facility] [address] [place] [address] [phone].Albumin4.1.Calcium9.1.Carbon Jmldyse21.Tiicxymh180.Phosphorus2.8 .Potassium3.8.Ssmbbg623.BUN32.GFR Mxhwhmngj67Medg41.Creatinine-LC1.4.Hemoglobin And Qolupkdehj70/24/[address] [address] [phone].Hemoglobin Blood13.4.Ttinewvksh98.5PTH Intact W/Bzrnrqp1208/03/[address] [address] [phone]#Misc Floq37Ldcmhto D 25 Iduytuy6008/03/2024[address] [address] [phone]#Misc Test>120.0.Urine Protein/Creat. Rpcnys6108/03/2024[address] [address] [phone].Urine Protein Koubee28.6.Urine Creatinine Gkzrct916.3.Urine Prot/Creat Ratio23.30.BMP W/Egfr-LC01/30/2024[facility] [phone].Jctpqy549.Potassium4.1.Ndxbqobr59.Carbon Taucgxi51.GFR55 .Creatinine-LC1.3.BUN23.Renal Panel01/21/2023[facility] [phone].Albumin3.8.Calcium9.3.Carbon Dibdpif12.Zwxzbqku357.Phosphorus3.7 .Potassium4.0.Jrajel087.BUN24.GFR Bjxtxyyxu56.Creatinine-LC1.41.Ua01/21/2023 [facility] [phone] AppearanceCLEARUa BilirubinNEGUa BloodNEGUa ColorYELLOWUa Epithelial Cells QL0-2Ua GlucoseNEGUa KetonesNEGUa Leuko1+Ua NitriteNEGUa PH Test Strip5.0Ua Protein1+Ua RBC2-5Ua SourceCLEAN CATCHUa Specific Gravity1.020Ua UrobilinogenNORMALUa WBC2-5.Urine Protein/Creat. Scnbss403[facility] [phone].Urine Protein Sfwbnn76.Urine Creatinine Roegpz661.8.Urine Prot/Creat Ratio0.193.Renal Panel (Other Labs)07/22/2022[place] [id number] [phone].Albumin4.1.Calcium9.7.Carbon Yomefol00.Jalyzqjp157.Creatinine-LC 1.18.Phosphorus3.3.Rqugxi521.BUN17.DKF25Ppos96.Potassium4.0.Urine Protein/Creat. Cntjnt8807/22/[address] [address] [phone].Urine Protein Xjqtno83.Urine Prot/Creat Ratio0.42.Ua07/22/[address] [address] [phone] AppearanceclearUa Bilirubin-Ua BloodtraceUa ColoryellowUa Epithelial Cells QL5-10Ua Glucose-Ua Ketones-Ua Leuko-Ua Nitrite-Ua PH Test Strip6.0Ua Protein2+Ua RBC0-2Ua Specific Gravity1.025Ua UrobilinogennormalUa WBC none seen.Renal Panel (Other Labs)07/10/202[address] [address] [phone].Albumin3.9.Calcium8.9.Carbon Frorcau01.Fmboqxzt533.Creatinine-LC 1.4.Phosphorus3.4.Hizdwk518.BUN25.DXO50Rguc00.Potassium4.7.Urine Protein/Creat. Etjafn5707/10/[address] [address] [phone].Urine Protein Gexulh62.0.Urine Creatinine Bydgwk538.5.Urine Prot/Creat Wiqcy861.30.Ua07/10/[address] [address] [phone] AppearanceclearUa BilirubinnegUa BloodnegUa ColoryellowUa Epithelial Cells QL0-2Ua GlucosenegUa KetonesnegUa LeukonegUa NitritenegUa PH Test Strip6.0Ua ProteintraceUa RBC0-3Ua Sourceclean catchUa Specific [place] 1.025Ua Urobilinogen0.2Ua WBC0-5.Renal Panel04/11/[address] [address] [phone].Albumin3.8.Calcium8.9.Carbon Dnzdxge80.Ybuzdvur572.Creatinine-LC 1.1.Phosphorus4.2.Vhctct738.BUN24.GFR-LC>51Ytld21.Potassium3.7.Ua04/11/[address] [address] [phone] AppearanceSlightly CloudyUa BilirubinNegativeUa BloodNegativeUa ColorYellowUa Epithelial Cells QL0-2Ua GlucoseNegativeUa KetonesNegativeUa Leuko 1+Ua NitriteNegativeUa PH Test Strip5.5Ua ProteinNegativeUa RBC0-3Ua SourceClean CatchUa Specific [place]>=1.030Ua Urobilinogen0.2Ua WBC0-5.Urine Protein/Creat. Mehrlm8204/11/[address] [address] [phone].Urine Protein Zmydlb15.7.Urine Creatinine Cmnidz073.8.Urine Prot/Creat Acvwn586.Renal Panel11/12/[address] [address] [phone].Albumin4.0.Calcium9.0.Carbon Ekptpys69.Zndcycxj775.Creatinine-LC 1.4.Phosphorus4.2.Ycrzax067.BUN34.GFR-DP52Jxxy81.Potassium4.4.Renal Panel 05/10/[address] [address] [phone].Albumin3.6.Calcium8.9.Carbon Enzoadm72.Rlwcrqor956.Creatinine-LC 1.4.Phosphorus3.7.Aaseuw051.BUN33.GFR-CI88Tpax30.Potassium4.5.Renal Panel - 11/11/[address] [address] [phone].Albumin3.5.Calcium8.7.Carbon Nyebpvp06.Phosphorus3.4.Potassium4.3 .Suncxo484.BUN29.Jeqpsdcj24.Creatinine-MC11/11/[address] [address] [phone].Creatinine-LC1.5.GFR Gskucpma97Wime46.GFR Gslmrjmlh00Aahc 20.Ipth11/11/[address] [address] [phone].Ipth35.Creatinine-MC04/17/[address] [address] [phone].Creatinine-LC1.4.GFR Bywpgkpl32Yggy35.GFR Tnryvhcxz40Iiyt 20.Ua04/17/[address] [address] [phone] AppearanceclearUa BacteriatraceUa BilirubinnegUa BloodnegUa ColoryellowUa Epithelial Cells QL0-2Ua GlucosenegUa KetonesnegUa LeukonegUa NitritenegUa PH Test Strip5.5Ua ProteintraceUa RBC0-3Ua Sourceclean catchUa Specific Gravity1.025Ua Urobilinogen0.2Ua WBC0-5.Urine Protein/Creat. Random 04/17/[address] [address] [phone].Urine Protein Qqdhka62.3.BUN04/17/[address] 8486299 [phone].BUN28.Gukefub1204/17/[address] [address] [phone].Calcium8.9.Glucose Serum04/17/[address] 3982606 [phone].Glucose Bfjpi192.Electrolytes Panel04/17/[address] 1427696 [phone].Carbon Xlvjcth73.Eqekidob678.Potassium4.1.Oloryo213.Glucose Serum 10/01/[address] [address] [phone].Glucose Catiw541.Opvutrg4710/01/[address] [address] [phone].Calcium9.4.BUN10/01/[address] [address] [phone].BUN26.Electrolytes Panel10/01/[address] [address] [phone].Carbon Rkamxvh52.Zdxnmyrt37.Potassium4.4.Bkdmqe245.Creatinine-MC 10/01/[address] [address] [phone].Creatinine-LC1.3.GFR >41Olvj41.GFR Bzwysyjid00 High20.Ipth04/04/[address] [address] [phone].Ipth44.Vitamin D, 25 Mtmoled6204/04/[address] [address] [phone].Vitamin D, 25 Xtgkjbh63.3.Urinalysis-Vljkzus9004/04/[address] [address] [phone] Specific Gravity1.020Ua PH Test Strip5.5Ua ColorYELLOWUa AppearanceCLEARUa WBC0-5Ua ProteinNEGUa GlucoseNEGUa KetonesNEGUa BilirubinNEGUa Urobilinogen0.2Ua NitriteNEGUa Occult BloodNEG.Urine Protein/Creat. Random 04/04/[address] [address] [phone].Urine Protein Mfbqbm43.6.Urine Creatinine Zeadhi814.3.Renal Panel 04/04/[address] [address] [phone].Albumin4.2.Calcium9.1.Carbon Kkuntgq90.Nylyquei523.Creatinine-LC 1.3.Phosphorus3.2.Potassium4.2.Ttqiul090.BUN32.GFR-EQ08Xzqr76.Hematocrit 04/04/[address] [address] [phone].Xgqyocalgo25.5.Hemoglobin Blood04/04/[address] 2393080 [phone].Hemoglobin Blood13.6.Urinalysis-Dyozzcs7110/05/[address] [address] [phone] Specific [place]<=1.005Ua PH Test Strip5.5Ua ColorSTRAWUa AppearanceCLEARUa WBC0-5Ua ProteinNEGUa GlucoseNEGUa KetonesNEGUa BilirubinNEGUa Urobilinogen0.2Ua NitriteNEGUa Occult BloodNEG.Urine Protein/Creat. Random 10/05/[address] [address] [phone].Urine Protein Random<6.0.Urine Creatinine Eoffnp69.6.Renal Panel 10/05/[address] 9404216 [phone].Albumin3.8.Calcium8.9.Carbon Empuhlu53.Oakyuaav685.Creatinine-LC 1.3.Phosphorus2.8.Potassium4.2.Juuyyw220.BUN29.GFR-BR51Fvtd88.Hematocrit 10/05/[address] [address] [phone].Xfyytmqejv36.3.Hemoglobin Blood10/05/[address] 2481839 [phone].Hemoglobin Blood12.9.Ipth1/[address] 6852165 [phone].Ipth49.Vitamin D, 25 Wyonvbt4810/05/[address] [address] [phone].Vitamin D, 25 Gkllmsa17.1.Ipth04/02/[address] [address] [phone].Ipth23.Hemoglobin Blood04/02/[address] [address] [phone].Hemoglobin Blood13.4.Bftlevxhbt97/24/[address] [address] [phone].Mecvxbdoxh09.5.Renal Panel04/02/[address] [address] [phone].Albumin3.9.Calcium9.0.Carbon Qprfnqa19.Ujkslxqa734.Creatinine-LC 1.4.Phosphorus3.4.Potassium4.3.Myjuju832.BUN27.GFR-QY28Qjcx23.Urine Protein/Creat. Cfbapu1304/02/[address] [address] [phone].Urine Protein Tgrbcb78.2.Urine Creatinine Shotaj499.3 .Urinalysis-Ecrxdyv5404/02/[address] 3095513 [phone] Specific Gravity1.025Ua PH Test Strip5.0Ua ColorYELLOWUa AppearanceCLEARUa WBC0-5Ua ProteinNEGUa Glucose1+Ua KetonesNEGUa BilirubinNEGUa Urobilinogen0.2Ua NitriteNEGUa Occult BloodNEGVitamin D 25 Wrbxpj0604/02/[address] [address] [phone]#Misc Test0.2.Hemoglobin And Lvnhrtlqjc61/19/2015[facility] [phone].Hemoglobin Blood13.6.Ntgzlupdak09.8.Ipth111/28/2014[facility] [phone].Renal Panel09/28/2015[facility] [phone].Albumin3.9.Calcium9.0.Carbon Frdovcs90.Jdkhykld934.Creatinine-LC 1.4.Phosphorus3.3.Potassium3.9.Yqtikj096.BUN22.GFR-JX55Sqmg80.Potassium 04/21/[address] [address] [phone].Potassium4.0.Dcyjgrqyn80/12/[address] [address] [phone].Magnesium2.2.V Ipth-Vitamin D004/10/[address] [address] [phone].Ipth23.Vitamin D, 25 Islpwai59.6.Urine Protein/Creat. Random 04/10/[address] [address] [phone].Urine Protein Mmtzir54.2.Urine Creatinine Random8.2.Urine Prot/Creat Ratio0.98.Carbon Joxdywd9404/10/[address] [address] [phone].Carbon Akckpfe03.Ihgbnobm75/01/[address] [address] [phone].Vcsrvduy607.Rlnffvnty17/01/[address] [address] [phone].Potassium3.1.Amuqmf9604/10/[address] [address] [phone].Dohmph097.GFR-LC04/10/[address] [address] [phone].GFR-LD23Wmqs39.BUN04/10/[address] [address] [phone].BUN22.Cjircfpzrd13/01/[address] [address] [phone].Pjgxvalmmv78.4.Hemoglobin Blood04/10/[address] [address] [phone].Hemoglobin Blood14.1.Hwvvoekkox60/01/[address] [address] [phone].Phosphorus3.1.Dcyajql3904/10/[address] [address] [phone].Calcium9.3.Creatinine-LC04/10/[address] [address] [phone].Creatinine-LC1.3.Mqvgiqzsn33/05/[address] [address] [phone].Potassium4.0.V Ipth-Vitamin D111/14/[address] [address] [phone].Ipth27.Vitamin D, 25 Seknvuc31.8Urine Protein Creat Mass Ratio 09/14/[address] [address] [phone]#Misc Test83.Urine Protein/Creat. Vclglw7409/14/[address] [address] [phone] Protein Random6.1Urine Creatinine Uyunqo75.9.Hemoglobin And Icweydcghy12/05/[address] [address] [phone].Hemoglobin Blood13.1.Ewscstqcbh71.1.Carbon Yeoebky7209/14/[address] [address] [phone].Carbon Opejvpu91.Thxoottn03/05/[address] [address] [phone].Xiqqxgqi241.Jsxsqe5409/14/[address] [address] [phone].Pvhrlb737.GFR-LC09/14/[address] [address] ([phone].GFR-TG21Utuu41.Creatinine-LC09/14/[address] [address] [phone].Creatinine-LC1.3.BUN09/14/[address] [address] [phone].BUN24.Auccojzaqe45/05/[address] [address] [phone].Phosphorus3.6.Vvcpouv4709/14/[address] [address] [phone].Calcium9.1.Qjpaadrrhy50/30/[address] [address] ([phone].Phosphorus3.4.V Ipth-Vitamin D003/09/[address] [address] [phone].Ipth23.Vitamin D, 25 Ercvnqo27.7.Hemoglobin And Hematocrit 03/09/[address] [address] [phone].Hemoglobin Blood13.4.Vnxxzasaxf16.7.Carbon Lvupxlo1303/09/[address] [address] [phone].Carbon Wwdyuwp64.Dsgvogfk07/30/[address] [address] [phone].Qblrcjoj640.Kfwauoaku98/30/[address] [address] [phone].Potassium4.1.Hlboli8403/09/[address] [address] [phone].Lsxuqy439.GFR-LC03/09/[address] [address] ([phone].GFR-DC43Cufm55.Creatinine-LC03/09/[address] [address] [phone].Creatinine-LC1.3.BUN03/09/[address] [address] ([phone].BUN25.Awojlrb4003/09/[address] [address] [phone].Calcium9.2.Lipid Panel02/23/2014[facility] [phone].Rrnatpucrvj583Mxcc Density Qitegnlfklj52.LDL Wcmqxogecev69 .Ssiwgvklzsolz567.Gitkzyx1109/03/[address] [address] [phone].Calcium9.2.Drwymnvxfo68/25/[address] [address] [phone].Phosphorus3.2.BUN09/03/[address] [address] ([phone].BUN26.Creatinine-MC09/03/[address] [address] [phone].Creatinine-LC1.3.GFR Eevvezygy71Orbv66.Electrolytes Panel 09/03/[address] [address] [phone].Carbon Rezvlnf85.Sahmtkpn908.Potassium4.2.Qwflva430.Hemoglobin And Jbrrgrrvpd47/25/[address] [address] [phone].Hemoglobin Blood13.4.Hmzwlvvckk26.5.V Ipth-Vitamin D1 [address] [address] [phone].Vitamin D, 25 Bgpnhxv45.9.BUN03/17/[address] [address] [phone].BUN25.Hemoglobin And Naozpmjufi12/08/[address] [address] [phone].Hemoglobin Blood13.1.Ejucfjquxm54.3.Electrolytes Panel03/17/[address] [address] [phone].Carbon Tjvlzno55.Xwvtbezf506.Potassium4.2.Bqaudt241.Kimmika Follow Up-03/17/[address] [address] [phone].Calcium9.1.Phosphorus3.1.Ipth18.Vitamin D, 25 Xvdafcr70.8 .Creatinine-03/17/[address] [address] [phone].Creatinine-LC1.4.GFR >85Kpkb11.GFR Ytqsmjlqg15 High20.Gxmkpin9609/15/[address] [address] [phone].Calcium9.1.Rshxmzwpip90/06/[address] [address] [phone].Phosphorus3.5.BUN09/15/[address] [address] [phone].BUN25.Creatinine-MC09/15/[address] [address] [phone].Creatinine-LC1.5.GFR-NC53Nkyu46.Electrolytes Panel09/15/[address] 4798729 [phone].Carbon Tjpqbuq35.Mmzljoua509.Potassium4.2.Nqwlli466.Hemoglobin And Nmmrqaymri44/06/[address] [address] [phone].Hemoglobin Blood13.1.Rsepmjjsvh76.8.V Ipth-Vitamin D111/15/[address] 3748311 [phone].Ipth21.Vitamin D, 25 Hlqwmdp98.6.Carbon Kliogtj6803/19/2012[facility] [phone].Carbon Bmleqlm45.Nfnjozpqzl73/10/2012[facility] [phone].Creatinine1.5.Hemoglobin And Vquvkegyto08/10/2012[facility] [phone].Hemoglobin Blood13.1.Erticfjyck75.4.Complement C303/19/2012 [facility] [phone].Complement C3142.Complement C403/19/2012[facility] [phone].Complement C431.Complement Total (CH50)03/19/2012[facility] [phone].Complement Total (CH50)65.Urine 24HR Creatinine Kqskwnh4803/19/2012 [facility] (000)-000-0000Urine Total Volume 50OE8465Tkcoa Creatinine Mol/Vol65.Lipid Panel 03/19/2012[facility] (000)-000-0000Cholesterol Total Mass/Kmc78Bbuo Density Sfcxfwfbobz66KMH Cholesterol Mass/Tdo53Chqntsyfydnjb Ser/Plas Mass/VL169.Anti GBM Antibody 03/19/2012[facility] (000)-000-0000GBM Antibody3.Anca Panel03/19/2012[facility] [phone].Roxann AB ScreenPOS.Anca-C<1:20.Anca-P<1:20.Swmhifbj89/10/2012 [facility] [phone].Umgaexiq942.Ciqxjq6603/19/2012[facility] [phone].Weuvve214.Lukhhebyh10/10/2012[facility] [phone].Potassium4.4.GFR03/19/2012[facility] [phone].KDU60Ujrd09.BUN03/19/2012[facility] [phone].BUN28.Enwmykxyayih96/10/2012[facility] [phone].CryoglobulinNONE.Vitamin D, 25 Frlxgzl3803/19/2012[facility] [phone].Vitamin D, 25 Erseqad55.3.Intact Parathyroid Ddcgmoh0303/19/2012 [facility] [phone].Intact Parathyroid Vkiagwu67.Hepatitis B003/19/2012[facility] [phone].Hepatitis BNEG.Immunofixation-Serum03/19/2012[facility] [phone].Immunofixation-SerumNO MONOCLONALIY.Jvtogaycp32/10/2012[facility] [phone].Magnesium2.3.Tweoevgond79/10/2012[facility] [phone].Phosphorus3.7.Xwqrmie9903/19/2012[facility] [phone].Calcium9.4.Urinalysis Wlbnyde0002/19/2012[facility] (000)-000-0000Ua ClarityclearUa Colorlt. 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 N18.31 Chronic kidney disea se, stage 3a E67.3 Hypervitaminosis D E66.01 Morbid (severe) obes ity due to excess calories Office Visit 02/07/2025 1:40p [facility] ERIS Mehta I12.9 Hypertensive chronic kidney disease w stg 1-4/unsp chr kdny 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 N18.31 Chronic kidney disea se, stage 3a E67.3 Hypervitaminosis D E66.01 Morbid (severe) obes ity due to excess calories Office Visit 08/09/2024 10:40a [facility] ERIS Davis I12.9 Hypertensive chronic kidney disease w stg 1-4/unsp chr kdny 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 N18.31 Chronic kidney disea se, stage 3a E67.3 Hypervitaminosis D Office Visit 02/04/2024 10:30a [facility] ERIS Davis I12.9 Hypertensive chronic kidney disease w stg 1-4/unsp chr kdny 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 N18.31 Chronic kidney disea se, stage 3a E66.01 Morbid (severe) obes ity due to excess calories E55.9 Vitamin D deficiency , unspecified Office Visit 01/30/2023 11:00a [facility] Trell Worthington I12.9 Hypertensive chronic kidney disease w stg 1-4/unsp chr kdny 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 E66.8 Other obesity N18.31 Chronic kidney disea se, stage 3a Office Visit 08/05/2022 11:00a [facility] Trell Worthington I12.9 Hypertensive chronic kidney disease w stg 1-4/unsp chr kdny 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 E66.8 Other obesity N18.31 Chronic kidney disea se, stage 3a Office Visit 07/19/2021 1:30p [facility] Ninfa Worthington I12.9 Hypertensive chronic kidney disease w stg 1-4/unsp chr kdny 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 E66.8 Other obesity N18.31 Chronic kidney disea se, stage 3a Office Visit 04/21/2020 11:20a [facility] Clay Juan Daniel shearer MD I12.9 Hypertensive chronic kidney disease w stg 1-4/unsp chr kdny 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 N18.3 Chronic kidney disea se, stage 3 (moderate) E66.8 Other obesity Office Visit 11/17/2019 11:20a [facility] Clay shearer MD I12.9 Hypertensive chronic kidney disease w stg 1-4/unsp chr kdny 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 N18.3 Chronic kidney disea se, stage 3 (moderate) E66.8 Other obesity Office Visit 05/18/2019 10:20a [facility] Clay shearer MD I12.9 Hypertensive chronic kidney disease w stg 1-4/unsp chr kdny 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 N18.3 Chronic kidney disea se, stage 3 (moderate) E66.8 Other obesity Office Visit 11/18/2018 9:20a [facility] Clay Arina shields MD I12.9 Hypertensive chronic kidney disease w stg 1-4/unsp chr kdny 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 N18.3 Chronic kidney disea se, stage 3 (moderate) E66.8 Other obesity Office Visit 04/30/2018 10:00a [facility] Clay Juan Daniel shearer MD I12.9 Hypertensive chronic kidney disease w stg 1-4/unsp chr kdny 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 N18.3 Chronic kidney disea se, stage 3 (moderate) Office Visit 10/10/2017 10:20a [facility] Clay Juan Daniel shearer MD I12.9 Hypertensive chronic kidney disease w stg 1-4/unsp chr kdny 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 N18.3 Chronic kidney disea se, stage 3 (moderate) E66.8 Other obesity Office Visit 04/17/2017 11:40a [facility] Clay Juan Daniel shearer MD I12.9 Hypertensive chronic kidney disease w stg 1-4/unsp chr kdny 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 N18.3 Chronic kidney disea se, stage 3 (moderate) E66.8 Other obesity Office Visit 10/16/2016 9:40a [facility] Clay shields MD I12.9 Hypertensive chronic kidney disease w stg 1-4/unsp chr kdny 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 N18.3 Chronic kidney disea se, stage 3 (moderate) E66.8 Other obesity Office Visit 04/11/2016 9:40a [facility] Hugo Canela N18.3 Chronic kidney disease, stage 3 (moderate) I12.9 Hypertensive chronic kidney disease w stg 1-4/unsp chr kdny E11.65 Type 2 diabetes naveen itus with hyperglycemia E66.8 Other obesity Office Visit 10/19/2015 11:40a [facility] Clay shearer MD N18.3 Chronic kidney disease, stage 3 (moderate) I12.9 Hypertensive chronic kidney disease w stg 1-4/unsp chr kdny E11.65 Type 2 diabetes naveen itus with hyperglycemia E66.8 Other obesity Office Visit 04/26/2015 11:20a [facility] Dixie Bakari horowitz, [employer] 585.3 Chronic Kidney Disease Stage 3 250.42 Diabetic Nephropathy Type II 403.10 Hypertension Glomeru loscerosis, Benign 278.00 Obesity Unspec Office Visit 09/29/2014 3:20p [facility] David sanchez M.D. 585.3 Chronic Kidney Disease Stage 3 250.42 Diabetic Nephropathy Type II 403.10 Hypertension Glomeru loscerosis, Benign 278.00 Obesity Unspec 272.0 Hypercholesterolemia Pure Office Visit 03/17/2014 3:20p [facility] David sanchez M.D. 585.3 Chronic Kidney Disease Stage 3 250.42 Diabetic Nephropathy Type II 403.10 Hypertension Glomeru loscerosis, Benign 278.00 Obesity Unspec 272.0 Hypercholesterolemia Pure Office Visit 09/16/2013 2:20p [facility] David sanchez M.D. 585.3 Chronic Kidney Disease Stage 3 403.10 Hypertension Glomeru loscerosis, Benign 250.42 Diabetic Nephropathy Type II 278.00 Obesity Unspec 272.0 Hypercholesterolemia Pure Office Visit 04/01/2013 11:20a [facility] David mccloud M.D. 585.3 Chronic Kidney Disease Stage 3 403.10 Hypertension Glomeru loscerosis, Benign 250.42 Diabetic Nephropathy Type II 278.00 Obesity Unspec 272.0 Hypercholesterolemia Pure Office Visit 09/24/2012 10:00a [facility] UMA Hernandez 585.3 Chronic Kidney Disease Stage 3 403.10 Hypertension Glomeru loscerosis, Benign 250.42 Diabetic Nephropathy Type II Office Visit 04/09/2012 3:30p [facility] David Malin M.D. 403.10 Hypertension Glomeruloscerosis, Benign 250.42 Diabetic Nephropathy Type II 585.3 Chronic Kidney Disea se Stage 3 278.00 Obesity Unspec 272.0 Hypercholesterolemia Pure Office Visit 02/19/2012 9:00a [facility] David Malin M.D. 250.42 Diabetic Nephropathy Type II 250.42 Diabetic Nephropathy Type II 403.10 Hypertension Glomeru loscerosis, Benign 403.10 Hypertension Glomeru loscerosis, Benign 585.3 Chronic Kidney Disea se Stage 3 585.3 Chronic Kidney Disea se Stage 3 272.0 Hypercholesterolemia Pure 272.0 Hypercholesterolemia Pure 278.00 Obesity Unspec Assessments Date Code Description Provider 09/21/2025 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, or unspecified chronic kidney disease Sangeetha Elias NP 09/21/2025 E11.21 Type 2 diabetes mellitus with diabetic nephropathy Sangeetha Elias NP 09/21/2025 N18.31 Chronic kidney disease, stag e 3a Sangeetha Elias NP 09/21/2025 E67.3 Hypervitaminosis D Sangeetha marrufo NP 09/21/2025 E66.01 Morbid (severe) obesity due to excess calories Sangeetha Elias NP 02/07/2025 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, or unspecified chronic kidney disease ERIS Dobson 02/07/2025 E11.21 Type 2 diabetes mellitus with diabetic nephropathy ERIS Dobson 02/07/2025 N18.31 Chronic kidney disease, stag e 3a ERIS Dobson 02/07/2025 E67.3 Hypervitaminosis D ERIS Mehta 02/07/2025 E66.01 Morbid (severe) obesity due to excess calories ERIS Dobson 08/09/2024 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, or unspecified chronic kidney disease ERIS Dobson 08/09/2024 E11.21 Type 2 diabetes mellitus with diabetic nephropathy ERIS Dobson 08/09/2024 N18.31 Chronic kidney disease, stag e 3a Angela Kelly NPC 08/09/2024 E67.3 Hypervitaminosis D Mackenzie Kelly NPC 02/04/2024 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, or unspecified chronic kidney disease ИРИНА DobsonC 02/04/2024 E11.21 Type 2 diabetes mellitus with diabetic nephropathy Angela Kelly NPC 02/04/2024 N18.31 Chronic kidney disease, stacey anderson 3a Angela Kelly NPC 02/04/2024 E66.01 Morbid (severe) obesity due to excess calories Angela Kelly NPC 02/04/2024 E55.9 Vitamin D deficiency, unspec ified Angela Kelly NP 01/30/2023 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, or unspecified chronic kidney disease Ninfa Worthington 01/30/2023 E11.21 Type 2 diabetes mellitus with diabetic nephropathy Ninfa Worthington 01/30/2023 E66.8 Other obesity Trell Worthington 01/30/2023 N18.31 Chronic kidney disease, stacey anderson 3a Ninfa Worthington 08/05/2022 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, or unspecified chronic kidney disease Clay Ohara MD 08/05/2022 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, or unspecified chronic kidney disease Ninfa Worthington 08/05/2022 E11.21 Type 2 diabetes mellitus with diabetic nephropathy Clay Ohara MD 08/05/2022 E11.21 Type 2 diabetes mellitus with diabetic nephropathy Ninfa Worthington 08/05/2022 E66.8 Other obesity Clay Ohara MD 08/05/2022 E66.8 Other obesity Trell Worthington 08/05/2022 N18.31 Chronic kidney disease, thanh Ohara MD 08/05/2022 N18.31 Chronic kidney disease, stacey anderson 3a Ninfa Worthington 07/19/2021 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, or unspecified chronic kidney disease Ninfa Worthington 07/19/2021 E11.21 Type 2 diabetes mellitus with diabetic nephropathy Ninfa Worthington 07/19/2021 E66.8 Other obesity Ander Trell nohelia 07/19/2021 N18.31 Chronic kidney disease, stag e 3a Ninfa Worthington 04/21/2020 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, or unspecified chronic kidney disease Clay Ohara MD 04/21/2020 E11.21 Type 2 diabetes mellitus with diabetic nephropathy Clay Ohara MD 04/21/2020 N18.3 Chronic kidney disease, stag e 3 (moderate) Clay Ohara MD 04/21/2020 E66.8 Other obesity Clay Ohara MD 11/17/2019 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 sta Clay Ohara MD 11/17/2019 E11.21 Type 2 diabetes mellitus with diabetic nephropathy Clay Ohara MD 11/17/2019 N18.3 Chronic kidney disease, stag e 3 (moderate) Clay Ohara MD 11/17/2019 E66.8 Other obesity Clay Ohara MD 05/18/2019 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 sta Clay Ohara MD 05/18/2019 E11.21 Type 2 diabetes mellitus with diabetic nephropathy Clay Ohara MD 05/18/2019 N18.3 Chronic kidney disease, stag e 3 (moderate) Clay Ohara MD 05/18/2019 E66.8 Other obesity Clay Ohara MD 11/18/2018 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 sta Clay Ohara MD 11/18/2018 E11.21 Type 2 diabetes mellitus with diabetic nephropathy Clay Ohara MD 11/18/2018 N18.3 Chronic kidney disease, stag e 3 (moderate) Clay Ohara MD 11/18/2018 E66.8 Other obesity Clay Ohara MD 04/30/2018 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, or unspecified chronic kidney disease Clay Ohara MD 04/30/2018 E11.21 Type 2 diabetes mellitus with diabetic nephropathy Clay Ohara MD 04/30/2018 N18.3 Chronic kidney disease, stag e 3 (moderate) Clay Ohara MD 10/10/2017 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, or unspecified chronic kidney disease Clay Ohara MD 10/10/2017 E11.21 Type 2 diabetes mellitus with diabetic nephropathy Clay Ohara MD 10/10/2017 N18.3 Chronic kidney disease, stag e 3 (moderate) Clay Ohara MD 10/10/2017 E66.8 Other obesity Clay Ohara MD 04/17/2017 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, or unspecified chronic kidney disease Clay Ohara MD 04/17/2017 E11.21 Type 2 diabetes mellitus with diabetic nephropathy Clay Ohara MD 04/17/2017 N18.3 Chronic kidney disease, stag e 3 (moderate) Clay Ohara MD 04/17/2017 E66.8 Other obesity Clay Ohara MD 10/16/2016 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, or unspecified chronic kidney disease Clay Ohara MD 10/16/2016 E11.21 Type 2 diabetes mellitus with diabetic nephropathy Clay Ohara MD 10/16/2016 N18.3 Chronic kidney disease, stag e 3 (moderate) Clay Oahra MD 10/16/2016 E66.8 Other obesity Clay Ohara MD 04/11/2016 N18.3 Chronic kidney disease, stag e 3 (moderate) Clay Ohara MD 04/11/2016 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, or unspecified chronic kidney disease Clay Ohara MD 04/11/2016 E11.65 Type 2 diabetes mellitus wit h hyperglycemia Clay Ohara MD 04/11/2016 E66.8 Other obesity Clay Ohara MD 10/19/2015 N18.3 Chronic kidney disease, stag e 3 (moderate) Clay Ohara MD 10/19/2015 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 09/29/2014 250.42 Diabetic Nephropathy Type II David Malin M.D. 09/29/2014 403.10 Hypertension Glomeruloscdianas is, Hema Malin M.D. 09/29/2014 278.00 Obesity Unspec David Malin M.D. 09/29/2014 272.0 Hypercholesterolemia Pure Maldonado savita Malin M.D. 03/17/2014 585.3 Chronic Kidney Disease Stage 3 David Malin M.D. 03/17/2014 250.42 Diabetic Nephropathy Type II David Malin M.D. 03/17/2014 403.10 Hypertension Lindaoscvineet isHema M.D. 03/17/2014 278.00 Obesity Unspec David Malin M.D. 03/17/2014 272.0 Hypercholesterolemia Pure Maldonado savita Malin M.D. 09/16/2013 585.3 Chronic Kidney Disease Stage 3 David Malin M.D. 09/16/2013 403.10 Hypertension Glomerulosceros is, Hema Malin M.D. 09/16/2013 250.42 Diabetic Nephropathy Type II David Malin M.D. 09/16/2013 278.00 Obesity Unspec David Malin M.D. 09/16/2013 272.0 Hypercholesterolemia Pure Maldonado savita Malin M.D. 04/01/2013 585.3 Chronic Kidney Disease Stage 3 David Malin M.D. 04/01/2013 403.10 Hypertension Glomerulosceros is, Benign David Malin M.D. 04/01/2013 250.42 Diabetic Nephropathy Type II David Malin M.D. 04/01/2013 278.00 Obesity Unspec David Malin M.D. 04/01/2013 272.0 Hypercholesterolemia Pure Maldonado resHugo Light.Peyton 09/24/2012 585.3 Chronic Kidney Disease Stage 3 Fabio Simmons PA 09/24/2012 403.10 Hypertension Glomerulosceros is, Benign UMA Hernandez 09/24/2012 250.42 Diabetic Nephropathy Type Ii UMA Hernandez 04/09/2012 403.10 Hypertension Glomerulosceros is, Hema Malin M.D. 04/09/2012 250.42 Diabetic Nephropathy Type Ii David Malin M.D. 04/09/2012 585.3 Chronic Kidney Disease Stage 3 David Malin M.D. 04/09/2012 278.00 Obesity Unspec David Malin M.D. 04/09/2012 272.0 Hypercholesterolemia Pure Maldonado resterrance Malin M.D. 02/19/2012 250.42 Diabetic Nephropathy Type II David Malin M.D. 02/19/2012 250.42 Diabetic Nephropathy Type Ii David Malin M.D. 02/19/2012 403.10 Hypertension Glomerulosceros is, Hema Malin M.D. 02/19/2012 403.10 Hypertension Glomerulosceros is, Hema Malin M.D. 02/19/2012 585.3 Chronic Kidney Disease Stage 3 David Malin M.D. 02/19/2012 585.3 Chronic Kidney Disease Stage 3 David Malin M.D. 02/19/2012 272.0 Hypercholesterolemia Pure Maldonado resterrance Malin M.D. 02/19/2012 272.0 Hypercholesterolemia Pure Maldonado resh Baltazar Malin 02/19/2012 278.00 Obesity Unspec David Malin M.D.
--- OUTSIDE RECORDS SUMMARY | 2025-09-22 09:48 | XMS_ITS | Clinical Summary ---
Author Organization [facility] Address [address], [address] [place] [address] Care Team Providers Care Business Continuity Strategy Director Name Role Phone Evaristo Mosqueda MD Primary Care Provider [phone] Allergies Active AllergyReactionsCriticalityNoted OwmdElrrglzpKouxwkv24/28/2020Penicillins 09/06/2020 Medications MedicationSigDispense QuantityRefillsLast FilledStart DateEnd DateStatus magnesium (MAGNESIUM-OXIDE) 250 MG TABS tablet Take 1 tablet by mouth 2 times dailyActive Braymer-3 Fatty Acids (FISH OIL) 1000 MG CAPS Take 1 capsule by mouth 2 times dailyActive amLODIPine (NORVASC) 2.5 MG tablet Take 1 tablet by mouth dailyActive ascorbic acid (VITAMIN C) 500 MG tablet Take 1 tablet by mouth dailyActive atorvastatin (LIPITOR) 20 MG tablet Take 1 tablet by mouth dailyActive vitamin D 25 MCG (1000 UT) CAPS Take 1 capsule by mouth dailyActive clopidogrel (PLAVIX) 75 MG tablet Take 1 tablet by mouth dailyActive finasteride (PROSCAR) 5 MG tablet Take 1 tablet by mouth dailyActive furosemide (LASIX) 20 MG tablet Take 1 tablet by mouth 2 times dailyActive insulin glargine (LANTUS SOLOSTAR) 100 UNIT/ML injection pen Inject 40 Units into the skin nightlyActive insulin lispro, 1 Unit Dial, 100 UNIT/ML SOPN Inject 10 Units into the skin 3 times daily (with meals)Active lisinopril (PRINIVIL;ZESTRIL) 20 MG tablet Take 1 tablet by mouth dailyActive metoprolol tartrate (LOPRESSOR) 25 MG tablet Take 1.5 tablets by mouth 2 times dailyActive Fluticasone furoate-vilanterol (BREO ELLIPTA) 200-25 MCG/INH AEPB inhaler Inhale into the lungs dailyActive ipratropium (ATROVENT) 0.02 % nebulizer solution INHALE contents of 1 vial using nebulizer FOUR TIMES DAILY06/11/2021ctive TRUEPLUS PEN NEEDLES 31G X 6 MM MISC USE FOUR TIMES DAILY & GWWWPN7104/24/2021ctive Dulaglutide (TRULICITY SC) Inject into the skin PT UNSURE OF DOSE BUT TAKES 1 injection weeklyActive albuterol (PROVENTIL) (2.5 MG/3ML) 0.083% nebulizer solution Take 3 mLs by nebulization every 4 hours as needed for Wheezing 120 each ctive guaiFENesin (MUCINEX) 600 MG extended release tablet Take 1 tablet by mouth 2 times daily 20 tablet 04/01/2023ctive Active Problems ProblemNoted DateDiagnosed DateCommunity acquired bacterial /20/2023 Coronary vmvnpennkmfhgee03/14/4357Wfrnywaakagcrh15/14/2012Peripheral vascular xfaxuzk6910/23/2012Type 2 diabetes mellitus without /14/2012 Overview (08/10/2025): Replacing diagnoses that were inactivated after the 08/10 regulatory import Fkxagymg21/09/2422Tahlukznw40/09/2012Sleep apnea05/18/2012 Social History Tobacco UseTypesPacks/DayYears UsedDateSmoking Tobacco: FormerCigarettes1.555 1953 - 2008Smokeless Tobacco: NeverAlcohol UseStandard Drinks/WeekCommentsNot Currently0 (1 standard drink = 0.6 oz pure alcohol)AUDIT-CAnswerDate RecordedQ1: How often do you have a drink containing alcohol?Never03/29/2023Q2: How many drinks containing alcohol do you have on a typical day when you are drinking? Patient does not drink03/29/2023Q3: How often do you have six or more drinks on one occasion?Never03/29/2023Interpersonal Safety Domain Source: IP Abuse ScreeningAnswerDate RecordedRead-Only, Retired: Physical AhytxQqiklm79/20/2023 Read-Only, Retired: Verbal CfgpmWunohr29/20/2023Read-Only, Retired: Emotional vonyiGcpckf76/20/2023Read-Only, Retired: Financial PmpcdXllghd09/20/2023Read- Only, Retired: Sexual sepbkWxtmvi84/20/2023Sex and Gender InformationValueDate RecordedSex Assigned at BirthNot on fileLegal VbbSwky7012/20/2012 11:47 AM EST Gender IdentityNot on fileSexual OrientationNot on file Last Filed Vital Signs Vital SignReadingTime TakenCommentsBlood Ijvmguox903/5006 9:45 AM EDT Xfiqo417704/12/2023 9:36 AM VBJEsqxebuxtbn64.7 ??C (98.1 ??F)04/12/2023 9:36 AM EDTRespiratory Foxo632704/12/2023 9:36 AM EDTOxygen Ugrldnxfkh63%04/12/2023 9:45 AM EDTInhaled Oxygen Concentration--Vpphnh298 kg (242 lb 6.4 oz)04/12/2023 9:36 AM UAWXxqsez495.9 cm (6')04/12/2023 9:36 AM EDTBody Mass Index32.8804/12/2023 9:36 AM EDT Plan of Treatment Health MaintenanceDue DateLast DoneCommentsDepression Wotxjx1109/03/1953Shingles vaccine (1 of 2)1991Respiratory Syncytial Virus (RSV) or age 60 yrs+ (1 - 1-dose 75+ series)09/03/20161606Ptcboh21/30/202308/, 04/05/2022, 2Diabetic Alb to Cr ratio (uACR) test/09/2023, 04/05/2022 Annual Wellness Visit (Medicare Advantage)11/10/2024GFR test (Diabetes, CKD 3-4, OR last GFR 15-59)503/, 07/21/2023, 04/01/2023, Additional history existsFlu vaccine (#1)06/10/2025OVID-19 Vaccine (1 - season) 2025DTaP/Tdap/Td vaccine (2 - Td or Tdap)Pneumococcal 50+ years LrbydlaSznqhffbu72/03/2016, 10/19/2009Hepatitis A vaccineAged OutNo longer eligible based on patient's age to complete this topicHepatitis B vaccine Aged OutNo longer eligible based on patient's age to complete this topicHib vaccineAged OutNo longer eligible based on patient's age to complete this topic Meningococcal (ACWY) vaccineAged OutNo longer eligible based on patient's age to complete this topicMeningococcal B vaccineAged OutNo longer eligible based on patient's age to complete this topicPolio vaccineAged OutNo longer eligible based on patient's age to complete this topic Procedures Procedure NamePriorityDate/TimeAssociated DiagnosisCommentsBUN & CREATININE Kgyblny5601/30/2024 9:49 AM EDT MICROALBUMIN, TSDpggwwj49/11/2023 7:37 AM EDT LIPID RXUJTEfebuxk72/30/2022 7:57 AM EDT from Last 3 Months or Most Recently Relevant to Health Maintenance Results * (ABNORMAL) BUN & Creatinine (01/30/2024 9:49 AM EDT)ComponentValueRef Range Test MethodAnalysis TimePerformed AtPathologist FajumgziiIWW690 - 23 mg/dL 01/30/2024 9:49 AM [employer] LABCreatinine1.3(H)0.7 - 1.2 mg/dL 01/30/2024 9:49 AM [facility] LABEst, Glom Filt Rate55(L)>60 mL/min/1.56n74101/30/2024 9:49 AM [employer] [facility] LABComment: ? These results are not intended for use in patients <18 years of age. ? eGFR results are calculated without a race factor using the 2020 CKD-EPI equation. Careful clinical correlation is recommended, particularly when comparing to results calculated using previous equations. The CKD-EPI equation is less accurate in patients with extremes of muscle mass, extra-renal metabolism of creatine, excessive creatine ingestion, or following therapy that affects renal tubular secretion. Specimen (Source)Anatomical Location / LateralityCollection Method / Volume Collection TimeReceived Time01/30/2024 9:49 AM EDT01/30/2024 9:50 AM EDT Narrative Authorizing ProviderResult TypeResult StatusIzzy Luna COMPOUNDER - CNPCHEMISTRY ORDERABLESFinal ResultPerforming OrganizationAddressCity/State/ZIP CodePhone Number [facility] [address] [place] [address], [facility] [phone] * (ABNORMAL) Microalbumin, Ur (07/21/2023 7:37 AM EDT)ComponentValueRef Range Test MethodAnalysis TimePerformed AtPathologist SignatureAlbumin Urine57(H)<21 mg/L07/21/2023 7:37 AM EDTMERCY LABORATORIESCreatinine, Ur85.639.0 - 259.0 mg/dL07/21/2023 7:37 AM EDTMERCY LABORATORIESMicroalb/Legislative Advocate. Ratio67(H)<17 mcg/mg creat07/21/2023 7:37 AM EDTMERCY LABORATORIESSpecimen (Source) Anatomical Location / LateralityCollection Method / VolumeCollection Time Received Time07/21/2023 7:37 AM EDT07/21/2023 7:38 AM EDT Narrative Authorizing ProviderResult TypeResult StatusBarney ZUÑIGA ORDERABLESFinal ResultPerforming OrganizationAddressCity/State/ZIP CodePhone Number [facility] [address] [place] [address], [facility] [phone] [phone] * (ABNORMAL) Lipid Panel (07/09/2022 7:57 AM EDT)ComponentValueRef RangeTest MethodAnalysis TimePerformed AtPathologist KmmbmabveCtsxxilrjkz546<200 mg/dL 07/09/2022 7:57 AM EDTMERCY LABORATORIESComment: Cholesterol Guidelines: <200 Desirable 200-240 ??Borderline >240 Undesirable HDL27(L)>40 mg/dL07/09/2022 7:57 AM EDTMERCY LABORATORIESComment: HDL Guidelines: <40 Undesirable 40-59 ?Borderline >59 Desirable LDL Fcvmtekphws065 - 130 mg/dL07/09/2022 7:57 AM EDTMERCY LABORATORIESComment: LDL Guidelines: <100 Desirable 100-129 ?? Near to/above Desirable 130-159 ?? Borderline >159 Undesirable Direct (measured) LDL and calculated LDL are not interchangeable tests. Chol/HDL Ratio4.5<508 7:57 AM EDTMERCY LABORATORIESComment:Triglycerides 209(H)<150 mg/dL07/09/2022 7:57 AM EDTMERCY LABORATORIESComment: Triglyceride Guidelines: <150 Desirable 150-199 ??Borderline 200-499 ??High >499 Very high Based on AHA Guidelines for fasting triglyceride, August 2012. Specimen (Source)Anatomical Location / LateralityCollection Method / Volume Collection TimeReceived Time07/09/2022 7:57 AM EDT07/09/2022 7:58 AM EDT Narrative Authorizing ProviderResult TypeResult StatusCaroline SpettelCHEMISTRY ORDERABLES Final ResultPerforming OrganizationAddressCity/State/ZIP CodePhone Number [facility] [address] [place] [address], [facility] [phone] [facility] [address] [id number] [phone] from Last 3 Months or Most Recently Relevant to Health Maintenance Insurance on file Advance Directives * DNR-CCA (Latest Code Status on File) Date ActivatedDate InactivatedComments03/29/2023 8:10 AM04/01/2023 12:25 PM * Full Code Date ActivatedDate InactivatedComments03/29/2023 7:20 AM03/29/2023 8:10 AM NameRelationshipHealthcare Agent [facility] HospitalMarilin Vazquez Primary Decision Maker* Care Teams Team MemberRelationshipSpecialtyStart DateEnd Date Evaristo Mosqueda MD [address] [place] [address] PCP - GeneralInternal Medicine03/29/23
--- OUTSIDE RECORDS SUMMARY | 2025-09-22 09:48 | XMS_ITS ---
Author Name KOENIGANITA JONES Address [facility] [place] [address] Phone Organization [employer] Address [address] [place] [address] Phone Care Team Providers Care Business Continuity Global Director Name Role Phone ARYA LEXIE ANITA Unavailable [phone] HERMILO ESTRADA Unavailable EMI THOMPSON Unavailable [phone] ALLERGIES, ADVERSE REACTIONS AND ALERTS Allergy Name Allergy Date Allergy Status Allergy Severity Allergy Reaction UNKNOWN DRUG ALLERGIES MAY E XIST PROBLEMS Problem None PROCEDURES Procedure Description Date Notes NO PROCEDURES PERFORMED ASSESSMENTS Assessment None PLAN OF TREATMENT Assessment Planned Activity LOINC Planned Jeffrey e None CONSULTATION NOTE Note Author Date None HISTORY AND PHYSICAL NOTE Note Author Date None PROGRESS NOTE Note Author Date None DISCHARGE SUMMARY Note Author Date None CHIEF COMPLAINT AND REASON FOR VISIT FUNCTIONAL STATUS Functional or Cognitive Find ing None MENTAL STATUS Cognitive Finding None ENCOUNTERS Encounter Type Provider Diagnoses Start Date Location Disc harged to None SOCIAL HISTORY Social Status Observation Unknown if ever smoked Sex: Male CARE TEAM INFORMATION Business Continuity Global Director Provider ID Role Location Phone HERMILO ESTRADA [phone] [address] [place] [address] EMI THOMPSON [phone] [address] [place] [address] INSURANCE PROVIDERS Payer Name Policy type / Coverage type Covered constitution party ID Policy [employer] [id number] SELF
--- OUTSIDE RECORDS SUMMARY | 2025-09-22 09:48 | XMS_ITS | Encounter Summary ---
Author Organization [facility] Address [address] [place] [address] Care Team Providers Care Electro Optical Engineer Name Role Phone Richelle Patton ETCHER APPRENTICE PHOTOENGRAVING Primary Care Provider [phone] Encounter Details DateTypeDepartmentCare Team (Latest Contact Info)Iwitrxoboew31/03/2025Orders Only [facility] [address] [place] [address] ProviderSusan MD [address] [place], [place] [id number] Social History Tobacco UseTypesPacks/DayYears UsedDateSmoking Tobacco: FormerCigarettes Smokeless Tobacco: NeverAlcohol UseStandard Drinks/WeekCommentsNot Currently0 (1 standard drink = 0.6 oz pure alcohol)DC Safety & EnvironmentAnswerDate Recorded Fear of Current or Ex-PartnerNot on file01/01/2024Emotionally AbusedNot on file 4Physically AbusedNot on file01/01/2024Sexually AbusedNot on file 4Physically or Sexually AbusedNot on file01/01/2024Sex and Gender InformationValueDate RecordedSex Assigned at PbycuDvgo49/27/2025 3:14 PM EDT Legal PamQdhr7305/08/2022 10:34 PM EDTGender LkwpyjtnBonm74/27/2025 3:14 PM EDT Sexual OrientationHeterosexual or Jwwlspwl75/27/2025 3:14 PM EDTdocumented as of this encounter Plan of Treatment Not on file documented as of this encounter Procedures Procedure NamePriorityDate/TimeAssociated DiagnosisCommentsECG 12-LEADRoutine 09/08/2025 11:27 AM EDTdocumented in this encounter Results * ECG 12 lead (09/08/2025 11:27 AM EDT) Narrative Authorizing ProviderResult TypeResult StatusHistorical Provider MDECG ORDERABLES Final Result documented in this encounter Visit Diagnoses Not on filedocumented in this encounter Care Teams Team MemberRelationshipSpecialtyStart DateEnd Date Richelle Patton FNP [address] [place] [address] PCP - GeneralNurse Oapvrnkljlvb74/16/23documented as of this encounter
--- OUTSIDE RECORDS SUMMARY | 2025-09-22 09:48 | XMS_ITS | Clinical Summary ---
Author Organization [facility] Address [address] [place] [address] Care Team Providers Care Telephone Advice Nurse Name Role Phone Evaristo Mosqueda MD Primary Care Provider [phone] Allergies Active AllergyReactionsCriticalityNoted LlduCdnaycoxAkpemkyHsuat51/19/2014 PenicillinsHives,Other10/28/2014 Medications MedicationSigDispense QuantityRefillsLast FilledStart DateEnd DateStatus sAXagliptin (Onglyza) 5 MG tablet Onglyza 5 mg tabletActive omega-3 (Fish Oil) 1000 MG capsule Take 1 capsule by mouth in the morning and 1 capsule before bedtime.Active nitroglycerin (Nitrodur) 0.4 MG/HR patch Place 1 patch on the skin in the morning.Active lisinopril 20 MG tablet lisinopril 20 mg tablet TAKE 1 TABLET BY MOUTH EVERY DAYActive levoFLOXacin (Levaquin) 500 MG tablet Take 1 tablet by mouth in the morning.04/01/2023ctive insulin NPH, Isophane, (HumuLIN N KWIKPEN) 100 UNIT/ML injection as directed SubcutaneousActive insulin lispro protamine-insulin lispro (HumaLOG MIX 50/50 KWIKPEN) (50-50) 100 UNIT/ML injection Inject under the skin 2 (two) times a day before meals.Active HumaLOG KWIKPEN 100 UNIT/ML injection Humalog KwikPen (U-100) Insulin 100 unit/mL subcutaneous inject 13 units subcutaneously THREE TIMES DAILY BEFORE MEALSActive guaiFENesin (Mucinex) 600 MG 12 hr tablet Take 1 tablet by mouth in the morning and 1 tablet before bedtime.04/01/2023 Active glipiZIDE (Glucotrol) 10 MG tablet glipizide 10 mg tablet TAKE 1 TABLET BY MOUTH TWICE DAILYActive Voltaren 1 % gel Apply topically.04/08/2023ctive cholecalciferol (Vitamin D-3) 25 MCG (1000 UT) capsule Daily.Active atorvastatin (Lipitor) 20 MG tablet Take 1 tablet by mouth in the morning.Active albuterol (2.5 MG/3ML) 0.083% nebulizer solution albuterol sulfate 2.5 mg/3 mL (0.083 %) solution for nebulization INHALE contents of 1 vial using nebulizer FOUR TIMES DAILY & EVERY 2 HOURS GDCFYC9304/01/2023ctive Active Problems No known active problems Resolved Problems ProblemNoted DateDiagnosed DateResolved DateAtherosclerosis of coronary artery oronary sebqcnjcvggrjaxo85iabetic peripheral neuropathy associated with type 2 diabetes atpqcdit22/09/2024 05/18/2024arcinoma in situ of left bronchus and lung Ulbzhannojdy87hronic diastolic heart dunjmeu5610/17/2021 05/18/2024 Overview (05/18/2024): Last Assessment & Plan: [facility] II-III, currently euvolemic without exacerbation Continue GDMT- continue lasix 40 mg daily- Diuretic therapy Monitor daily weights, I&O, fluid restriction 1.5-2L/day, renal function and electrolytes Ltmzoawsxscvvu52AD (peripheral artery disease)10/23/2012 05/18/2024 Overview (05/18/2024): ROVING WINDER/STENT EVETTE, RSFA 2009 Encounters DateTypeDepartmentCare HnssPvprdqakjww29/03/2025 9:50 AM EDTOffice Visit [facility] [address] [place] [address] Cory Xavier, DPHugo FACFAS 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); Onychomycosis; Pain in right toe(s); Pain in left toe(s)10/03/2025Bamboo flowsheet [facility] [address] [place] [address] Cory Xavier, DPM FACFAS from Last 3 Months Social History Tobacco UseTypesPacks/DayYears UsedDateSmoking Tobacco: NeverSmokeless Tobacco: Never Tobacco Cessation:Counseling Given: Yes Alcohol UseStandard Drinks/WeekCommentsNever0 (1 standard drink = 0.6 oz pure alcohol)Sex and Gender InformationValueDate RecordedSex Assigned at BirthNot on fileLegal NskDrqh9301/22/2023 6:41 PM EDTGender IdentityNot on fileSexual OrientationNot on file Last Filed Vital Signs Vital SignReadingTime TakenCommentsBlood Cbjbhaem834/7408/12/2025 10:05 AM EDT Mzapc681808/12/2025 10:05 AM EDTTemperature--Respiratory Rate--Oxygen Saturation-- Inhaled Oxygen Concentration--Xwsrkx440 kg (276 lb)08/12/2025 10:05 AM EDTHeight 170.2 cm (5' 7 )08/12/2025 10:05 AM EDTBody Mass Index43.231 10:05 AM EDT Plan of Treatment DateTypeDepartmentCare Team (Latest Contact Info)Gdidcgackqp66/15/2025 9:40 AM ESTOffice Visit [facility] [address] [place] [address] Cory Xavier, DPM FACFAS [address] [place] [address] Insurance Care Teams Team MemberRelationshipSpecialtyStart DateEnd Date Evaristo Mosqueda MD [address] [place] [address] PCP - GeneralInternal Medicine04/16/23
--- OUTSIDE RECORDS SUMMARY | 2025-09-22 09:48 | XMS_ITS | Clinical Summary ---
Author Organization [facility] Address [address] [place] [address] Care Team Providers Care Switch Operators Supervisor Name Role Phone Richelle Patton ATTENUATOR Primary Care Provider [phone] Allergies Active AllergyReactionsCriticalityNoted JmfuAiekowmlBxcnxteVyxix33/19/2014 KwrcsaupyacStnrk83/19/2014 Medications MedicationSigDispense QuantityRefillsLast FilledStart DateEnd DateStatus albuterol 2.5 mg /3 mL (0.083 %) nebulizer solution INHALE contents of 1 vial using nebulizer FOUR TIMES DAILY & EVERY 2 HOURS NEEDEDActive atorvastatin (Lipitor) 20 mg tablet Take 1 tablet by mouth at bedtime.Active clopidogrel (Plavix) 75 mg tablet Take 1 tablet by mouth in the morning.Active cholecalciferol (Vitamin D-3) 25 MCG (1000 UT) capsule Take 2 capsules every day by oral route.Active finasteride (Proscar) 5 mg tablet Take 1 tablet by mouth in the morning.Active fluticasone furoate-vilanteroL (Breo Elipta) 200-25 mcg/dose inhaler INHALE 1 (ONE) PUFF DAILYActive insulin glargine (Lantus) 100 unit/mL (3 mL) pen inject 40 units SUBCUTANEOUSLY dailyActive insulin lispro (HumaLOG) 100 unit/mL injection inject 13 units subcutaneously THREE TIMES DAILY BEFORE MEALSActive lisinopril 20 mg tablet Take 1 tablet by mouth in the morning.Active metoprolol tartrate (Lopressor) 25 mg tablet TAKE 1 & 1/2 (ONE AND ONE-HALF) TABLETS BY MOUTH TWICE DAILYActive nitroglycerin (Nitrostat) 0.4 mg SL tablet DISSOLVE 1 TABLET UNDER THE TONGUE NEEDED FOR CHEST PAIN- MAY REPEAT EVERY 5 MINUTES IF NEEDED (MAX 3 DOSES.- IF NO RELIEF CALL 911)Active furosemide (Lasix) 20 mg tablet Indications:Generalized edemaTake 1 tablet (20 mg) by mouth in the morning and at bedtime. 180 tablet /2Active empagliflozin (Jardiance) 10 mg Take 1 tablet by mouth in the morning.3Active dulaglutide (Trulicity) 1.5 mg/0.5 mL pen injector Inject 1.5 mg under the skin 1 (one) time per week.Active cilostazol (Pletal) 100 mg tablet Take 1 tablet by mouth in the morning and at bedtime.09/22/2024ctive glucose 4 gram chewable tablet Chew 16 g.05/26/2024ctive metFORMIN XR (Glucophage-XR) 500 mg 24 hr tablet Take 500 mg by mouth daily with evening meal.5Active omega-3 fatty acids-fish oil (Fish Oil) 300-1,000 mg capsule Take 1 capsule by mouth twice a day.Active semaglutide 1 mg/dose (4 mg/3 mL) pen injector Inject 1 mg under the skin in the morning.09/07/2024ctive amLODIPine (Norvasc) 5 mg tablet Indications:Essential hypertensionTake 1 tablet (5 mg) by mouth in the morning. 30 tablet 5Active ascorbic acid (Vitamin C) 500 mg tablet Take 500 mg by mouth in the morning.Active magnesium citrate and oxide (magnesium citrate,mag oxide) 250 mg capsule Take 250 mg by mouth 2 times daily.Active awtvgemylj-gkthmbll-bdmygkiiou 160-9-4.8 mcg/actuation HFA aerosol inhaler Inhale 160 mcg Twice daily at 6am and 6pm.5Active Active Problems ProblemNoted DateDiagnosed HuwwVcrhjqwa97/29/2025 Overview (09/07/2025): bilateral Exercise kdqfadrbirf60/29/6229Zpopmmo47/29/2025Encounter for other preprocedural qktsctztasg54/16/2025Left ventricular xyqlyphzeva69/16/2025Primary malignant neoplasm of right lower lobe of lung02/23/2025Type 2 diabetes mellitus with mild nonproliferative diabetic retinopathy without macular edema, right eye02/23/2025 Impacted cerumen of both ears02/22/2025therosclerosis of inupiat arteries of extremities with intermittent claudication, bilateral legs04/08/2024History of intravascular stent qrhgwjfyw67/30/2024Type 2 diabetes mellitus with diabetic neuropathy, with long-term current use of lkmkyhk7304/08/2024bnormal CT scan, lungcid vvozrw56nemia08/25/2023 08/25/2023symptomatic microscopic jasjtgewn57enign prostatic zgzvsjxrzvp10PH with urinary gzgstxwvmax64 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erumen impaction hronic obstructive lung iaccqve28 Ltrwjirmanhf82OPD type B1Edema of leg Elevated prostate specific antigen (PSA) Feeling of incomplete bladder aqltadtw27Hypertensive heart rbcexvk69Leaking of urineMild carpal tunnel syndrome of right wristNocturia Non-gtbakl79Long term (current) use of zpkrzwr3808/25/2023 08/25/2023eripheral arterial occlusive diwxvri30 Overview (08/25/2023): Aug 25, 2022 Entered By: SENA HANDY Comment: with claudication Patient had no falls in past yearOther specified problems related to psychosocial xmaltyaaicfdy22himosis08/25/2023 08/25/2023rimary squamous cell carcinoma of upper lobe of left lung08/25/2023 08/25/2023Solitary pulmonary gdwbyd86Typical yxtodx7308/25/2023 08/25/2023Vitamin D xclfweyfpv30Venous stasis ulcer of lower yzdiejoio98 Overview (08/25/2023): Added per query response from Zully Patton, per outpatient [facility] policy. Urethral meatal smpxfdrs74ommunity acquired bacterial qrhirkqae41Lung ikeubfd43 Overview (08/25/2023): Added automatically from request for surgery [id number] Aug 25, 2022 Entered By: SENA HANDY Comment: 12/04/21: suspicious nodule in each lung. suggests PET CTSep 24, 2022 Entered By: SENA HANDY Comment: 09/2022: PET CT suggests possible lung cancer nodule. pt active with heme/onc Dr. Juan C Storey whom is also tagged in resultDec 03, 2022 Entered By: SENA HANDY Comment: c/s placed again for fast track cancer Mixed mfomsvlqpinfmi46/18/2022 Assessment & Plan (08/25/2023 1:17 PM EDT): Continue lipitor [facility] Assessment & Plan (08/27/2022 9:17 AM EDT): Continue lipitor Essential nhspmxkfcsdu42/18/2022 Assessment & Plan (08/25/2023 1:16 PM EDT): Hypertension is well controlled 132/51 Continue all meds Assessment & Plan (08/27/2022 9:17 AM EDT): 143/56- elevated in office- most likely r/t white coat syndrome. Continue metoprolol, lisinopril and amlodipine PVC (premature ventricular contraction)07/20/2022 Assessment & Plan (08/25/2023 1:17 PM EDT): Continue metoprolol Assessment & Plan (08/27/2022 9:11 AM EDT): Denied palpitations, continue metoprolol 25 mg bid Nonsustained ventricular ydouwnwtvsm79/10/2022 Assessment & Plan (08/25/2023 1:17 PM EDT): Continue metoprolol 25 mg bid Assessment & Plan (08/27/2022 9:17 AM EDT): No concerning symptoms, continue metoprolol 25 mg bid Olqpvve9807/20/2022 Assessment & Plan (08/27/2022 9:13 AM EDT): Currently remains stable without worsening symptoms Grade 1 diastolic dysfunction noted continue Lasix for volume management. Discussed with patient to call office for increased weight, increased shortness of breath or orthopnea, increased leg swelling or any other concerns. Chronic diastolic heart xswmwid5510/17/2021 Assessment & Plan (08/25/2023 1:15 PM EDT): [facility] II-III, currently euvolemic without exacerbation Continue GDMT- continue lasix 40 mg daily- Diuretic therapy Monitor daily weights, I&O, fluid restriction 1.5-2L/day, renal function and electrolytes Assessment & Plan (08/27/2022 9:11 AM EDT): [facility] II Currently remains fairly euvolemic, without exacerbation Remains on lasix 20 mg daily, states dyspnea and BLE edema are no worse than usual. Reviewed Echo 07/24/22 LV systolic function is normal EF 60% grade 1 diastolic dysfunction No significant valvular dysfunction No pericardial effusion Uncontrolled type 2 diabetes iqquqczj07oronary tuvnzlvigwuesrl65/14/2012 Assessment & Plan (08/25/2023 1:16 PM EDT): Coronary artery disease is stable No concerning symptoms today Continue GDMT- continue lipitor, plavix, lisinopril, metoprolol continue risk factor modifications- heart healthy diet, regular exercise as tolerated and continue all medications. Assessment & Plan (08/27/2022 9:12 AM EDT): Continue goal-directed medical therapy-Lipitor, Plavix, metoprolol, lisinopril Continue heart healthy risk factor modifications-cardiac diet, exercise as tolerated and continue all medications. Diabetes mellitus type II, non insulin liqjgkixx30/14/2012 Assessment & Plan (08/27/2022 9:16 AM EDT): F/U with PCP Type 2 diabetes mellitus with diabetic peripheral angiopathy without gangrene Migraine05/18/20127128Xlmcfxsqb32/09/2012OSA (obstructive sleep apnea)05/18/2012 Assessment & Plan (08/27/2022 9:16 AM EDT): F/U with pulmonary, does not wear C pap Benign hypertensive renal pgfufui49Obesity, unspecified ure xudjakshelgrkmgotaiq60/11/201210/16/2023Stage 3 chronic kidney swycbza27 Resolved Problems ProblemNoted DateDiagnosed DateResolved ZyzwPzgpfhdfbckxmd74/14/201210/18/2022 Peripheral vascular ppkciwe78 Encounters DateTypeDepartmentCare AjwpFelnmsexhdd66/03/2025Orders Only [address] [place] [address] ProviderSusan MD 09/08/2025 10:00 AM EDTOffice Visit [address] [place] [address] Ramona Roque CNP Chronic diastolic heart failure (CMS/HCC) (Primary Dx); Atherosclerosis of inupiat coronary artery of inupiat heart without angina pectoris; Essential hypertension; Mixed hyperlipidemia; Other chest pain; PAD (peripheral artery disease)from Last 3 Months Family History Medical HistoryRelationNameCommentsHeart attackFatherNo Known ProblemsMother DiabetesSisterRelationNameStatusCommentsFatherDeceasedMotherDeceasedSister Social History Tobacco UseTypesPacks/DayYears UsedDateSmoking Tobacco: FormerCigarettes Smokeless Tobacco: Never Tobacco Cessation:Counseling Given: Not Answered Alcohol UseStandard Drinks/WeekCommentsNot Currently0 (1 standard drink = 0.6 oz pure alcohol)UT Safety & EnvironmentAnswerDate RecordedFear of Current or Ex-PartnerNot on file01/01/2024Emotionally AbusedNot on file01/01/2024hysically AbusedNot on file01/01/2024Sexually AbusedNot on file01/01/2024hysically or Sexually AbusedNot on file01/01/2024Sex and Gender InformationValueDate Recorded Sex Assigned at JkmblJywl89/27/2025 3:14 PM EDTLegal LxoLaqd9205/08/2022 10:34 PM EDTGender HvkiufebOgvw61/27/2025 3:14 PM EDTSexual OrientationHeterosexual or Kunelkwj56/27/2025 3:14 PM EDT Last Filed Vital Signs Vital SignReadingTime TakenCommentsBlood Vwgckbjj607/6509/08/2025 9:53 AM EDT Utlsg809809/08/2025 9:53 AM EDTTemperature--Respiratory Rate--Oxygen Wyebjphybp78% 09/08/2025 9:53 AM EDTInhaled Oxygen Concentration--Kbhihq72.8 kg (209 lb) 09/08/2025 9:53 AM VCCDsxuva998.9 cm (6')09/08/2025 9:53 AM EDTBody Mass Index 28.351 9:53 AM EDT Plan of Treatment Health MaintenanceDue DateLast DoneCommentsDiabetes: Hemoglobin A1C1940 Medicare Annual Wellness (AWV)1941iabetes: Retinopathy Screening 1951epression Eeodlzuvy54/25/1953Zoster Vaccines (1 of 2)1991Fall Risk Ajkdmebgm71/25/2006Diabetes: Urine Protein Ecujbtbox62/05/2023, 07/21/2023, 2COVID-19 Vaccine ( - season)2025Influenza Vaccine (#1), 09/10/2016Adult Imiuolq34 Pneumococcal Vaccine: 50+ AwmdrUionqnruz38/03/2016, 10/19/2009HIB VaccinesAged OutNo longer eligible based on patient's age to complete this topicHPV Vaccines Aged OutNo longer eligible based on patient's age to complete this topicIPV VaccinesAged OutNo longer eligible based on patient's age to complete this topic Meningococcal B VaccineAged OutNo longer eligible based on patient's age to complete this topicMeningococcal VaccineAged OutNo longer eligible based on patient's age to complete this topicRotavirus VaccinesAged OutNo longer eligible based on patient's age to complete this topic Procedures Procedure NamePriorityDate/TimeAssociated DiagnosisCommentsECG 12-LEADRoutine 09/08/2025 11:27 AM EDTfrom Last 3 Months Results * ECG 12 lead (09/08/2025 11:27 AM EDT) Narrative Authorizing ProviderResult TypeResult StatusHistorical Provider MDECG ORDERABLES Final Result from Last 3 Months Insurance Care Teams Team MemberRelationshipSpecialtyStart DateEnd Date Richelle Patton FNP [address] [place] [address] PCP - GeneralNurse Rkltgwzybybe22/16/23
--- NOTE | 2025-09-22 10:00 | CA_ITS ---
Patient Name: KEN BORDEN MR#: [id number] : 1940 Exam Date: 09/22/2025 Ordering Doctor: ALBERTINA AVILES CNP ECHOCARDIOGRAM REPORT PROCEDURE: CA ECHO DOPPLER COMPLETE INDICATIONS: Chest pain, CABGx4, NH, h/o lung cancer, hypertension, diabetes COMPARISON: None. DESCRIPTION: COMPLETE ECHOCARDIOGRAM Real-time transthoracic echocardiography with 2D, M-mode, spectral and color flow Doppler performed. QUALITY: Technical quality was good. LEFT VENTRICLE: Normal chamber size. Moderate concentric left ventricular hypertrophy. Systolic function is at the lower limits of normal. The septum is abnormal in motion likely due to prior open heart surgery. Estimated LVEF left ventricular ejection fraction is 50-55%. LV EF: Low normal left ventricular ejection fraction, (50-55%). DIASTOLIC: Normal diastolic function. ATRIAL SEPTUM: Visually appears intact. LEFT ATRIUM: Moderate dilatation. RIGHT ATRIUM: Moderate dilatation. RIGHT VENTRICLE: Mild dilatation. Normal right ventricular systolic function. TRICUSPID VALVE: Normal mobility and thickness. No stenosis with mild regurgitation. No evidence of pulmonary hypertension. RVSP 34 mmHg MITRAL VALVE: Normal mobility and thickness. No evidence of mitral valve stenosis. There is no mitral annular calcification. Mild mitral regurgitation. AORTIC VALVE: Normal trileaflet appearance. Thickened aortic valve. Normal leaflet mobility. No evidence of aortic valve stenosis. No aortic regurgitation. AORTIC ROOT: Normal diameter and appearance, measuring 3.5 cm. Ascending aorta is normal in size, measuring 3.1 cm. PULMONIC VALVE: Not well visualized. PERICARDIUM: No evidence of pericardial effusion. IVC: Collapses with inspiration. IVC is dilated (2.4 cm). PLEURA: CONCLUSION: 1. Moderate concentric left ventricular hypertrophy with low normal systolic function. LVEF is estimated at 50 to 55%. 2. Mildly dilated right ventricle with normal systolic function. 3. Moderate biatrial dilatation. 4. Mild mitral and tricuspid regurgitation. 5. Normal right-sided pressures. Adult Echocardiography Procedure Report Left Ventricle LVEDD (3.7 - 5.6 cm): 4.27 cm LVESD (2.2 - 4.0 cm): 2.81 cm LVIVS thickness (0.6 - 1.2 cm): 1.58 cm LVPW thickness (0.5 - 1.0 cm): 1.47 cm e': 0.12 m/s E - e': 5.38 LVOT Max Gradient: 2.86 mm[Hg] LVOT Area (cm2): 0.84 m/s Peak Velocity (LVOT): 0.84 m/s Mean Velocity (LVOT): 0.60 m/s LVOT Diameter 2.20 cm Left Ventricular Ejection Fraction: 50-55 % Left Atrium LA Volume Index (2D A2C): 40.58 ml/m2 Left Atrium Systolic Dimension: 3.98 cm Mitral Valve MV E to A Ratio: 0.55 Mitral Valve A-Wave Peak Velocity: 1.19 m/s Mitral Valve E-Wave Peak Velocity: 0.65 m/s Right Ventricle Aorta AO Root Diam: 3.48 cm Ascending Ao Diam: 3.09 cm Aortic Valve AoV Area (Peak Rafiq): 2.64 cm2, 2.64 cm2 AoV Area (VTI): 2.76 cm2, 2.76 cm2 Peak Velocity(Antegrade Flow): 1.22 m/s Peak Gradient(Antegrade Flow): 5.92 mm[Hg] Mean Velocity(Antegrade Flow): 0.78 m/s Mean Gradient(Antegrade Flow): 2.86 mm[Hg] Velocity Time Integral: 28.50 cm Tricuspid Valve Peak Velocity (Regurgitant Flow): 2.55 m/s Pulmonic Valve Peak Velocity: 0.98 m/s Peak Gradient: 3.86 mm[Hg] Right Atrium Right Atrium Systolic Pressure: 65.71 ml, 65.71 ml Dictated by: Ramy Marie M.D. on 09/22/2025 at 19:16 Approved by: Ramy Marie M.D. on 09/22/2025 at 19:21
--- NOTE | 2025-09-22 11:28 | PC.NURSE ---
Patient tolerated Lexiscan stress test without problems. SOB with Lexiscan injection resolved prior to leaving stress lab. Frequent PVC's, couplets, bigeminy noted but patient remained symptom free. Left the stress lab without symptoms.
[2025-09-22] MEDS: REGADENOSON 0.4 MG/5 ML SYRINGE IV (11:32)
--- NOTE | 2025-09-26 16:58 | PM.STRESS ---
Stress Test Stress Test Requesting physician: ALBERTINA AVILES General Information: Reason for Stress Test: [Chest pain] Cardiac History and Risk Factors: [History of CAD, CABG, hypertension, and hyperlipidemia] Resting 12 - Lead Electrocardiogram: Resting twelve-lead EKG showed sinus rhythm with frequent PVCs of different morphologies in singles and couplets, heart rate 81 bpm, right bundle branch block, left anterior fascicular block. Resting blood pressure 150/76 mmHg Patient received Lexiscan 0.4 mg IV and he was monitored for a few minutes. He reported shortness of breath with Lexiscan but no chest pain. Peak heart rate 103 bpm which represents 75% of age-predicted maximum heart rate and peak blood pressure 136/60 mmHg. EKGs throughout the test did not show significant ST changes but frequent PACs and PVCs noted sometimes in couplets and sometimes in bigeminal pattern and there was 1 incidence of 2:1 A-V conduction Stress Test: Protocol: [Lexiscan] Exercise Capacity: [Not applicable] Blood Pressure Response: [Normal] Rhythm: [Frequent PVCs sometimes in bigeminy and couplets, frequent PACs, 1 incidence of second-degree AV block with 2-1 AV conduction?brief] ST - Response: [No ST changes] Patient Response: [Shortness of breath] Interpretation: Negative Lexiscan EKG stress test for ischemia Patient had frequent PVCs at baseline and they continue to appear throughout the test sometimes in couplets and sometimes in bigeminal pattern, in addition frequent PACs noted and 1 brief episode of second-degree AV block with 2:1 AV conduction The nuclear myocardial perfusion stress images result is reported separately Marcelo Gonzalez MD, FACC
== END 2025-09-22 09:45 | disposition home or self-care (01) ==
LOC: NM 09:45
PROVIDERS: PCP Nurse Practitioner Family; Visit Provider Nurse Practitioner Family
DX: I25.10 Atherosclerotic heart disease of native coronary artery without angina pectoris (principal); R07.89 Other chest pain
CPT/HCPCS: 78452; 93017; 93306; A9500; J2785